=== PATIENT | female | born 1950 | race Hispanic/Latino ===

== ENCOUNTER 2024-11-05 09:32 | Inpatient (IN) | payer OTHER ==
[2024-11-05] MEDS ORDERED: ALBUTEROL 2.5 MG/3 ML NEB SOL ONE (09:47)
[2024-11-05] MEDS ORDERED: IPRATROPIUM BROM 0.5MG/2.5ML ONE (09:47)
[2024-11-05] MEDS ORDERED: NA CHLORIDE 0.9% 1,000 ML ONE (09:47)
[2024-11-05 10:08] LABS: Absolute Eosinophils 0.1 K/uL (0-0.5); Absolute Lymphocytes (CBC) 0.4 K/uL (0.7-4.9); Absolute Monocytes 0.4 K/uL (0.1-1.3); Absolute Neutrophil 4.7 K/uL (1.8-8.0); Basophils % 0.7 % (0-1.3); Eosinophils % 1.1 % (0-4.4); Hematocrit 22.6 % (36.0-45.0); Hemoglobin 7.5 g/dL (12.0-15.0); Lymphocytes % 7.6 % (15.3-44.8); MCH 28.7 pg (27.0-35.0); MCHC 33.1 g/dL (32.0-36.0); MCV 86.6 fL (80-100); MPV 6.5 fL (7.6-11.3); Monocytes % 6.6 % (3.3-12.3); Nucleated Red Blood Cells % 0.1 % (0-0); Platelets 364 thou/uL (152-406); RBC Red Blood Cell Count 2.61 M/uL (3.86-4.86)
[2024-11-05 10:16] LABS: PT Prothrombin Time 11.8 SECONDS (10-13.0); PTT, Activated Partial Thromb 27.1 SECONDS (27.2-37.4); Protime INR 1.04
[2024-11-05 10:28] LABS: AST/SGOT 18 U/L (15-37); Albumin 2.6 g/dL (3.4-5.0); Albumin/Globulin Ratio 0.8 (1.1-1.8); Alkaline Phosphatase 73 U/L (45-117); Anion Gap 9.7 mEq/L (5.0-15.0); BUN Blood Urea Nitrogen 29 mg/dL (7-18); Bicarbonate 26 mEq/L (21-32); Bilirubin Total 0.3 mg/dL (0.2-1.0); Globulin 3.4 g/dL (2.3-3.5); Glomerular Filtration Rate 40 ml/min (=/>90); Glucose Level 128 mg/dL (74-106); NT PRO-BNP 2481 pg/mL (<125); Potassium 3.7 mEq/L (3.5-5.1); Sodium Level 138 mEq/L (136-145); Troponin High Sensitivity 5.8 pg/mL (<58.9)
[2024-11-05 10:29] LABS: ALT/SGPT < 14 U/L (13-56)
--- NOTE | 2024-11-05 10:41 | RAD REPORT ---
Procedure: Chest Single View HISTORY: Shortness of breath COMPARISON: none FINDINGS: Moderate bilateral pulmonary opacities. No significant pleural effusion noted. The heart is mildly to moderately enlarged. IMPRESSION: Moderate bilateral pulmonary opacities may represent pulmonary edema or pneumonia.
[2024-11-05 11:19] LABS: Blood Gas Oxyhemoglobin 66.9 % (94-97); Blood O2 Saturation 68.2 % (92-98.5)
[2024-11-05 11:20] LABS: Arterial Blood Carboxyhemoglob 0.9 % (0-1.5); Blood Gas THB 9.4 g/dl (12-18)
[2024-11-05 12:01] LABS: Differential Total Cells Count 100; Eosinophils 1 % (0-3); Lymphocytes 4 % (15-42); Monocytes 5 % (0-10); Segmented Neutrophils 85 % (40-80)
[2024-11-05 12:02] LABS: Atypical Lymphocytes 3 %; Blood Morphology Comment NOTED (NOT SEEN); Metamyelocytes 2 % (0-0); Platelet Estimate ADEQ; Spherocyte 1+
[2024-11-05] MEDS ORDERED: Levofloxacin 750mg IV 750 MG/150 ML BAG IV ONE (12:16)
--- NOTE | 2024-11-05 12:17 | ER ---
Nurse's Notes [facility] Name: Yolette Adame Age: 74 yrs Sex: Female : 1950 Arrival Date: 11/05/2024 Time: 09:32 Bed 24 Private MD: Diagnosis: Multifocal pneumonia;Hypoxia Presentation: 11/05 09:44 Chief complaint: Patient states: Recently discharged from [facility] after ss a 7 day admission after being diagnosed with COVID. Pt reports she was discharged home on Monday. Coronavirus screen: Client reports previous positive COVID test result. Ebola Screen: Patient denies exposure to infectious person. Patient denies travel to an Ebola-affected area in the 21 days before illness onset. Initial Sepsis Screen: Does the patient meet any 2 criteria? RR > 20 per min. Does the patient have a suspected source of infection? No. Patient's initial sepsis screen is negative. Risk Assessment: Do you want to hurt yourself or someone else? Patient reports no desire to harm self or others. Onset of symptoms was October 28, 2024. 09:44 Method Of Arrival: Wheelchair ss 09:44 Acuity: DEX 2 ss Triage Assessment: 09:57 General: Appears in no apparent distress. well groomed. Respiratory: the patient has ph moderate shortness of breath. Historical: - Allergies: 09:47 No Known Allergies; ss - PMHx: 09:47 liver transplant; ss - Immunization history:: Adult Immunizations unknown. - Infectious Disease History:: Denies. - Social history:: Smoking status: Patient denies any tobacco usage or history of. Screenin:57 [facility] ED Fall Risk Assessment (Adult) History of falling in the last 3 months, ph including since admission No falls in past 3 months (0 pts) Confusion or Disorientation No (0 pts) Intoxicated or Sedated No (0 pts) Impaired Gait No (0 pts) Mobility Assist Device Used Yes (1 pt) Altered Elimination No (0 pt) Score/Fall Risk Level 0 - 2 = Low Risk Oriented to surroundings, Maintained a safe environment, Hourly rounding (assess needs \T\ fall precautionary measures) done. Abuse screen: Denies threats or abuse. Denies injuries from another. Nutritional screening: No deficits noted. Tuberculosis screening: No symptoms or risk factors identified. Assessment: 09:56 General: Appears in no apparent distress. Behavior is cooperative, anxious. Pain: ph Denies pain. Neuro: Level of Consciousness is awake, alert, obeys commands, Oriented to person, place, time, situation. Respiratory: Reports shortness of breath cough that is Airway is patent Respiratory effort is even, unlabored, Respiratory pattern is regular, symmetrical. GI: No signs and/or symptoms were reported involving the gastrointestinal system. Derm: Skin is pink, warm \T\ dry. Vital Signs: 09:44 BP 144 / 64; Pulse 65; Resp 32; Temp 98.9(O); Pulse Ox 83% on R/A; Weight 74.84 kg; ss Height 5 ft. 1 in. ; Pain 5/10; 09:48 Pulse Ox 92% on 4 lpm NC; ss 10:35 BP 132 / 48; Pulse 63; Pulse Ox 91% on 4 lpm NC; ap3 11:44 BP 152 / 66; Pulse 59; Resp 26; Pulse Ox 92% on 4 lpm NC; ap3 12:35 BP 149 / 56; Pulse 61; Resp 22; Pulse Ox 95% on 4 lpm NC; ph 09:44 Body Mass Index 31.18 (74.84 kg, 154.94 cm) ss 09:44 Pain Scale: Adult ss ED Course: 09:35 Patient arrived in ED. im 09:35 Andrea Johnson MD is Attending Physician. rt 09:37 Junie Hall, RN is Primary Nurse. ph 09:47 Triage completed. ss 09:47 Arm band placed on right wrist. ss 09:55 Initial lab(s) drawn, by me, sent to lab. First set of blood cultures drawn by me. ap3 09:57 Patient has correct armband on for positive identification. Bed in low position. Call ph light in reach. Side rails up X2. Client placed on continuous cardiac and pulse oximetry monitoring. NIBP monitoring applied. compliance monitor on. Door closed. Noise minimized. 10:01 Inserted saline lock: 22 gauge in left antecubital area, using aseptic technique. Blood ap3 collected. Flushed with 10 mL NS. 10:12 EKG done, by ED staff, reviewed by Andrea Johnson MD. kb4 10:13 Chest Single View XRAY In Process Unspecified. EDMS 12:16 Pa Rosen PA is Hospitalizing Provider. rt 12:35 No provider procedures requiring assistance completed. Patient admitted, IV remains in ph place. Administered Medications: 09:51 Drug: DuoNeb Nebulize (3:1) (2.5 mg - 0.5 mg) 3 ml Nebulizer once Route: Nebulizer; ph 10:12 Drug: NS 0.9% IV 1000 ml IV at 1000 ml once; to be given as a bolus over 60 minutes ap3 Route: IV; Rate: 1000 ml; Site: left antecubital; 11:15 Follow up: IV Status: Completed infusion; IV Intake: 1000ml ap3 12:24 Drug: LevaQUIN IVPB 750 mg IVPB once Route: IVPB; Site: left antecubital; ap3 Medication: 09:57 VIS not applicable for this client. ph Intake: 11:15 IV: 1000ml; Total: 1000ml. ap3 Outcome: 12:16 Decision to Hospitalize by Provider. rt 17:00 Admitted to ER Hold. Please see [facility] for further documentation. ph 17:00 Condition: stable 17:00 Instructed on the need for admit, 11/06 18:12 Patient left the ED. cm10 Signatures: Dispatcher [employer] EDMS Cristina Serrano RN RN Junie Hall RN RN Annalee Burciaga RN RN ap3 Andrea Johnson MD MD rt Mariela Cervantes Clarissa, RN RN cm10 Meche Arriola kb4
--- NOTE | 2024-11-05 12:17 | EDPHYS ---
Physician Documentation [facility] Name: Yolette Adame Age: 74 yrs Sex: Female : 1950 Arrival Date: 11/05/2024 Time: 09:32 Bed 24 Private MD: ED Physician Andrea Johnson HPI: 11/05 09:46 This 74 yrs old Female presents to ER via Unassigned with complaints of rt Shortness Of Breath. 09:46 Patient has a history of liver transplant, on immunosuppressants. the patient had a rt recent admission To [facility] for COVID-pneumonia, completed a course of antibiotics, is currently on steroids. She was in the hospital for about a week, left the hospital 4 days ago and reportedly was doing well. Patient had worsening of the breathing since discharge, acutely worsened today prompting her to come for further evaluation. Symptoms are moderate in severity, no other aggravating alleviating factors.. Historical: - Allergies: 09:47 No Known Allergies; ss - PMHx: 09:47 liver transplant; ss - Immunization history:: Adult Immunizations unknown. - Infectious Disease History:: Denies. - Social history:: Smoking status: Patient denies any tobacco usage or history of. ROS: 09:46 Constitutional: Negative for fever, chills, and weight loss, Cardiovascular: Negative rt for chest pain, palpitations, and edema, Abdomen/GI: Negative for abdominal pain, nausea, vomiting, diarrhea, and constipation, MS/Extremity: Negative for injury and deformity, Skin: Negative for injury, rash, and discoloration, Neuro: Negative for headache, weakness, numbness, tingling, and seizure, 09:46 Respiratory: Positive for cough, shortness of breath, Exam: 09:46 Constitutional: This is a well developed, well nourished patient who is awake, alert, rt and in no acute distress. Head/Face: Normocephalic, atraumatic. Chest/axilla: Normal chest wall appearance and motion. Nontender with no deformity. No lesions are appreciated. Cardiovascular: Regular rate and rhythm with a normal S1 and S2. No gallops, murmurs, or rubs. Normal PMI, no JVD. No pulse deficits. Abdomen/GI: Soft, non-tender, with normal bowel sounds. No distension or tympany. No guarding or rebound. No evidence of tenderness throughout. Skin: Warm, dry with normal turgor. Normal color with no rashes, no lesions, and no evidence of cellulitis. MS/ Extremity: Pulses equal, no cyanosis. Neurovascular intact. Full, normal range of motion. Neuro: Awake and alert, GCS 15, oriented to person, place, time, and situation. Cranial nerves II-XII grossly intact. Motor strength 5/5 in all extremities. Sensory grossly intact. Cerebellar exam normal. Normal gait. 09:46 Respiratory: No wheezes heard, moderate respiratory distress, 11:05 ECG was reviewed by the Attending Physician. rt Vital Signs: 09:44 BP 144 / 64; Pulse 65; Resp 32; Temp 98.9(O); Pulse Ox 83% on R/A; Weight 74.84 kg; ss Height 5 ft. 1 in. ; Pain 5/10; 09:48 Pulse Ox 92% on 4 lpm NC; ss 10:35 BP 132 / 48; Pulse 63; Pulse Ox 91% on 4 lpm NC; ap3 11:44 BP 152 / 66; Pulse 59; Resp 26; Pulse Ox 92% on 4 lpm NC; ap3 12:35 BP 149 / 56; Pulse 61; Resp 22; Pulse Ox 95% on 4 lpm NC; ph 09:44 Body Mass Index 31.18 (74.84 kg, 154.94 cm) ss 09:44 Pain Scale: Adult ss MDM: 09:37 Medical Screening Exam initiated rt 12:17 Differential diagnosis: COVID, pneumonia, bronchospasm, pulmonary edema. Antibiotic rt administration: Levaquin given. Data reviewed: vital signs, nurses notes, lab test result(s), EKG, radiologic studies. Consideration of Admission/Observation Patient was admitted/placed on observation. Management of patient was discussed with the following: Hospitalist: Agrees to admit. I considered the following discharge prescriptions or medication management in the emergency department Medications were administered in the Emergency Department. See MAR. Independent interpretation of the following test(s) in the Emergency Department X-Ray: My interpretation is Multifocal pneumonia seen on interpretation of x-ray images. Care significantly affected by the following chronic conditions: Liver transplant. Counseling: I had a detailed discussion with the patient and/or guardian regarding the historical points, exam findings, and any diagnostic results supporting the discharge/admit diagnosis, lab results, radiology results, the need for further work-up and treatment in the hospital. Response to treatment: the patient's symptoms have markedly improved after treatment. 11/05 09:43 Order name: Blood Culture Adult (2) rt 11/05 09:43 Order name: CBC with Diff; Complete Time: 12:03 rt 11/05 09:43 Order name: CMP; Complete Time: 10:42 rt 11/05 09:43 Order name: Lactate w/ 2H reflex if indic.; Complete Time: 10:42 rt 11/05 09:43 Order name: Protime (+inr); Complete Time: 10:42 rt 11/05 09:43 Order name: Ptt, Activated; Complete Time: 10:42 rt 11/05 09:43 Order name: Troponin High Sensitivity; Complete Time: 10:42 rt 11/05 09:43 Order name: BNP; Complete Time: 10:42 rt 11/05 09:44 Order name: ABG; Complete Time: 11:52 rt 11/05 12:02 Order name: Manual Differential; Complete Time: 12:03 EDMS 11/05 13:08 Order name: COVID-19 Ag + Flu A+B Ag EDMS 11/05 14:04 Order name: Basic Metabolic Panel EDMS 11/05 14:04 Order name: Basic Metabolic Panel EDMS 11/05 14:04 Order name: Basic Metabolic Panel EDMS 11/05 14:04 Order name: Basic Metabolic Panel EDMS 11/05 14:04 Order name: Basic Metabolic Panel EDMS 11/05 14:04 Order name: Basic Metabolic Panel EDMS 11/05 14:04 Order name: CBC with Automated Diff EDMS 11/05 14:04 Order name: CBC with Automated Diff EDMS 11/05 14:04 Order name: CBC with Automated Diff EDMS 11/05 14:04 Order name: CBC with Automated Diff EDMS 11/05 14:04 Order name: CBC with Automated Diff EDMS 11/05 14:04 Order name: CBC with Automated Diff EDMS 11/05 14:42 Order name: Vancomycin Level Trough EDMS 11/05 21:07 Order name: Glucose, Ancillary Testing EDMS 11/06 08:14 Order name: Glucose, Ancillary Testing EDMS 11/06 12:04 Order name: Glucose, Ancillary Testing EDMS 11/06 17:29 Order name: Glucose, Ancillary Testing EDMS 11/05 09:43 Order name: Chest Single View XRAY; Complete Time: 10:42 rt 11/05 14:04 Order name: Chest Abdomen Pelvis W Cont EDMS 11/05 14:04 Order name: Echo with Doppler EDMS 11/05 14:22 Order name: Head Brain Wo Cont EDMS 11/05 14:30 Order name: Extrem Venous W Compress Altaf EDMS 11/05 09:43 Order name: Accucheck; Complete Time: 10:15 rt 11/05 09:43 Order name: Cardiac monitoring; Complete Time: 10:00 rt 11/05 09:43 Order name: EKG - Nurse/Tech; Complete Time: 10:00 rt 11/05 09:43 Order name: IV Saline Lock - Large Bore; Complete Time: 10:02 rt 11/05 09:43 Order name: Labs collected and sent; Complete Time: 10:02 rt 11/05 09:43 Order name: O2 Per Protocol; Complete Time: 09:45 rt 11/05 09:43 Order name: O2 Sat Monitoring; Complete Time: 09:45 rt 11/05 09:43 Order name: Vital Signs; Complete Time: 09:45 rt EC:05 Rate is 65 beats/min. Rhythm is regular, Normal Sinus Rhythm with No ectopy. QRS [place] rt is Normal. ID interval is normal. QRS interval is normal. QT interval is normal. No Q waves. No ST changes noted. Interpreted by me. Administered Medications: 09:51 Drug: DuoNeb Nebulize (3:1) (2.5 mg - 0.5 mg) 3 ml Nebulizer once Route: Nebulizer; ph 10:12 Drug: NS 0.9% IV 1000 ml IV at 1000 ml once; to be given as a bolus over 60 minutes ap3 Route: IV; Rate: 1000 ml; Site: left antecubital; 11:15 Follow up: IV Status: Completed infusion; IV Intake: 1000ml ap3 12:24 Drug: LevaQUIN IVPB 750 mg IVPB once Route: IVPB; Site: left antecubital; ap3 Disposition: 12:17 Critical Care:. rt Disposition Summary: 11/05/24 12:16 Hospitalization Ordered Notes: Hospitalization Status: Inpatient Admission rt Provider: Pa Rosen rt Condition: Fair rt Problem: an ongoing problem rt Symptoms: have improved rt Bed/Room Type: Standard rt Location: Telemetry/MedSurg (Inpatient)(11/06/24 17:32) iw Room Assignment: 228(11/06/24 17:32) iw Diagnosis - Multifocal pneumonia rt - Hypoxia rt Forms: - Medication Reconciliation Form rt - SBAR form rt - Leadership Thank You Letter rt Critical care time excluding procedures: 12:17 Critical care time: Bedside Care: 30 minutes, Consultation: 5 minutes. Total time: 35 rt minutes Signatures: Dispatcher [employer] EDMS Linda Jon, RN Cristina Knott, RN RN iw Cristina Serrano, RN RN ss Junie Hall, RN RN ph Annalee Burciaga, RN RN [email or web address] Anna Marie Carranza RN RN [email or web address] Radha Bay RN RN kb3 Andrea Johnson MD MD rt Corrections: (The following items were deleted from the chart) 09:43 09:43 BLOOD CULTURE*+BA.LAB.BRZ ordered. EDMS EDMS 09:43 09:43 CBC+H.LAB.BRZ ordered. EDMS EDMS 09:43 09:43 COMPREHENSIVE METABOLIC PANEL+C.LAB.BRZ ordered. EDMS EDMS 09:43 09:43 LACTATE+C.LAB.BRZ ordered. EDMS EDMS 09:43 09:43 PROTIME (+INR)+COAG.LAB.BRZ ordered. EDMS EDMS 09:43 09:43 PTT, ACTIVATED+COAG.LAB.BRZ ordered. EDMS EDMS 09:43 09:43 Troponin High Sensitivity+C.LAB.BRZ ordered. EDMS EDMS 09:43 09:43 PROBNP+C.LAB.BRZ ordered. EDMS EDMS 09:44 09:44 Chest Single View+RAD.RAD.BRZ ordered. EDMS EDMS 12:03 10:14 CBC Smear Scan ordered. EDMS EDMS 14:22 14:04 CT-HEAD/BRAIN W/O CONTRAST ordered. EDMS EDMS 16:46 12:16 Telemetry/MedSurg (observation) rt kb3 16:46 12:16 rt kb3 11/06 03:51 04/ 16:46 [facility] ER HOLD kb3 kl 11/06 03:51 04 16:46 ERHOLD- kb3 kl 11/06 05:55 03:51 Telemetry/MedSurg (Inpatient) kl vc1 05:55 03:51 204 kl vc1 17:32 05:55 [facility] ER HOLD vc1 iw 17:32 05:55 ERHOLD- vc1 iw
[2024-11-05] MEDS ORDERED: D10W 125 ML IV PRN (13:55)
[2024-11-05] MEDS ORDERED: GLUCAGON 1 MG/VIAL IM PRN (13:55)
--- NOTE | 2024-11-05 14:19 | P.HP ---
Certification for Inpatient With expected LOS: >2 Midnights Patient will require the following post-hospital care: None Practitioner: I am a practitioner with admitting privileges, knowledge of patient current condition, hospital course, and medical plan of care. Services: Services provided to patient in accordance with Admission requirements found in Title 42 Section 412.3 of the Code of Federal Regulations Patient History Date of Service: 11/05/24 Reason for admission: Pneumonia History of Present Illness: 74-year-old patient presented with shortness of breath, she was found to have COVID infection approximately 10 days back, she was admitted to [facility], she was released on last Monday, she was given antibiotics and steroids, after she was discharged she was getting more short of breath so she presented here. She is complaining of cough, she is complaining of some chest and abdominal pain along with the cough, complaining of headache. She had a fever last night. She had some lower extremity edema while she was at [facility], she gained some weight as well, she was given diuretics there. No blackouts. No double vision or blurry vision. No nausea or vomiting. No abdominal pain. No constipation or diarrhea. No blood in the urine or stool. No joint pains. Review of systems: All other 10 point review of systems are negative other than as mentioned above. Allergies and medications: Reviewed, as per med rec EMR. Past medical history: Liver transplant, chronic anemia, CKD 3, diabetes mellitus type 2, hypertension Past surgical history: Liver transplant Social history: No smoking or alcohol or drugs Family history: No family history of CVA. Dad had a history of [place]. Physical examination: Vital signs: Reviewed, as per EMR. General appearance: Alert and comfortable HEENT: Extraocular movements intact, oral mucosa moist. CVS: Normal S1-S2 Lungs: Clear to auscultation bilaterally Abdomen: Soft, bowel sounds present, no tenderness Extremities: No lower extremity edema EDUCATION ASSOCIATE: Moves all 4 extremities, no obvious focal deficits Musculoskeletal: No obvious joint swelling or tenderness Physical Examination - Studies Laboratory Data (last 24 hrs) 11/05/24 11/05/24 11/05/24 09:55 09:55 09:55 WBC 5.60 Hgb 7.5 L Hct 22.6 L Plt Count 364 PT 11.8 INR 1.04 APTT 27.1 L Sodium 138 Potassium 3.7 BUN 29 H Creatinine 1.38 H Glucose 128 H Total Bilirubin 0.3 AST 18 ALT < 14 Alkaline Phosphatase 73 Assessment and Plan - Plan Assessment and plan: 1. Pneumonia, recent COVID infection: Will recheck COVID PCR, start treating as bacterial pneumonia for now, start broad-spectrum antibiotics with vancomycin and cefepime, will continue IV Decadron, request ID consult. - She may have some volume overload as well, no lower extremity extremity edema at the time of my visit but she has some lower extremity edema while was at home, check lower extremity ultrasound, will get a CT chest, get echo, start low-dose diuretic, monitor volume status closely. 2. Acute hypoxic respiratory failure: Continue supplemental oxygen 3. Chronic anemia: Monitor closely 4. CKD 3A: Monitor closely 5. History of liver transplant: Resume mycophenolate and Prograf. 6. Diabetes mellitus type 2: Sliding scale insulin for now 7. Hypertension DVT prophylaxis: Lovenox CODE STATUS: She would like to be full code Advanced directives: her daughter Shana is the POA. I did discuss all the above plan with the patient and her daughter at bedside, they both understand agrees with the plan. - Advance Directives Does patient have a Living Will: No Does patient have a Durable POA for Healthcare: No
[2024-11-05] MEDS ORDERED: ACETAMINOPHEN 500 MG TAB ONE (14:50)
--- NOTE | 2024-11-05 14:56 | RAD REPORT ---
EXAM: CT brain without contrast HISTORY: headache COMPARISON: None TECHNIQUE: Multiple contiguous axial images were obtained and a CT of the brain without contrast. Sag ittal and coronal reformats were performed. One or more of the following dose reduction techniques were used: Automated exposure control, adjust ment of the mA and/or kV according to patient size, and/or iterative reconstruction. FINDINGS: No evidence of hydrocephalus, intracranial hemorrhage, or extra-axial fluid collection. Mild brain atrophy with mild periventricular and deep white matter chronic microvascular ischemic ch anges present. No evidence of midline shift or areas of brain edema. The calvarium is intact. The visualized paranasal sinuses and mastoid air cells are essentially clear . IMPRESSION: No evidence of acute intracranial abnormality.
[2024-11-05] MEDS: ACETAMINOPHEN 500 MG TAB PO PRN (15:00)
--- NOTE | 2024-11-05 15:54 | RAD REPORT ---
EXAM: CT CHEST, ABDOMEN AND PELVIS WITH CONTRAST CLINICAL INDICATION: chest pain, abdominal pain and sob TECHNIQUE: CT chest, abdomen and pelvis was performed, following the administration of contrast, as p er department protocol. Axial, sagittal and coronal reconstructions were obtained. One or more of the following dose reduction techniques were used: Automated exposure control, adjustment of the mA a nd/or kV according to patient size, and/or iterative reconstruction. Unless otherwise specified, incidental findings do not require dedicated imaging follow-up. COMPARISON: No prior exam. FINDINGS: LUNGS: Extensive bilateral alveolar lung infiltrates are present, greater on the right likely related to infection. PLEURA: Trace left pleural effusion. MEDIASTINUM AND LYMPH NODES: Upper limit of normal mediastinal and hilar lymph nodes are present. OSSEOUS STRUCTURES AND CHEST WALL: Intact. LIVER: Mild diffuse fatty liver. Biliary stent is in place. Cholecystectomy clips. PANCREAS: No mass, ductal dilation, or kasi-pancreatic fluid. SPLEEN: Normal size. No focal lesion. ADRENALS: Normal; no mass. KIDNEYS: Normal size and contour. No hydronephrosis. URINARY BLADDER: Normal contour. GASTROINTESTINAL TRACT: No bowel obstruction, free air, significant free fluid or abscess. Moderate stool is present in the colon. There is a small amount of free fluid adjacent to the right colon. APPENDIX: Normal appendix. LYMPH NODES: No lymphadenopathy. MUSCULOSKELETAL: Mild lower lumbar degenerative spondylosis. Prominent facet arthrosis lower lumbar l evels. OTHER: Moderate fat-containing ventral hernias. IMPRESSION: Extensive bilateral alveolar lung opacities as detailed with mild reactive lymphadenopathy is suspect ed to be related to infection. Biliary stent in place the common duct with no significant intrahepatic biliary tree dilatation.
[2024-11-05] MEDS ORDERED: dexAMETHasone 4 MG TAB ONE (16:26)
[2024-11-05] MEDS ORDERED: FUROSEMIDE 40 MG/4 ML VIAL ONE (16:26)
[2024-11-05] MEDS: INSULIN REGULAR (HUMAN) 100 UNIT/ML SQ SCH (16:30)
[2024-11-05] MEDS: FUROSEMIDE 40 MG/4 ML VIAL IV SCH (16:30)
[2024-11-05] MEDS: VANCOMYCIN 1.75 GM in NA CHLORIDE 0.9% 500 ML IVPB ONE (16:30)
[2024-11-05] MEDS: dexAMETHasone 4 MG TAB PO SCH (16:30)
--- NOTE | 2024-11-05 16:54 | RAD REPORT ---
EXAMINATION: US BILATERAL LOWER EXTREMITY VENOUS DOPPLER CLINICAL INDICATION: eval for DVT TECHNIQUE: Complete bilateral duplex sonography of the BILATERAL lower extremity veins was performed. The examination included compression for vein patency, color Doppler imaging and flow augmentation in response to distal compression of the distal external iliac, common femoral, femoral, popliteal, t ibial, and great and small saphenous veins. COMPARISON: No prior exam. FINDINGS: Duplex sonography testing of the veins of the BILATERAL lower extremity was performed. Color flow chapo ging shows all veins to be compressible with [id number] color filling. Pulsatile and phasic flow is present within all lower extremity deep and superficial veins examined. IMPRESSION: There is no deep vein or superficial vein thrombosis.
[2024-11-05] MEDS: CEFEPIME 1 GM in NA CHLORIDE 0.9% 100 ML IV SCH (21:00)
--- NOTE | 2024-11-06 00:36 | CON ---
History Of Present Illness: This is a 74-year-old female, I was consulted for evaluation of pneumoni a. The patient is a 74-year-old female coming in with shortness of breath with recurrent history of COVID. Daughter is by the bedside who was able to give most of the history as patient is not able to communicate well. She had COVID infection about 10 days ago and was seen at [facility] and was released after treatment with antibiotic and steroids. The patient felt better for a few da ys and then her condition worsened and developed some shortness of breath and came to the emergency r oom with cough and worsening shortness of breath. Denies any headache, nausea, vomiting, but has mil d chest and abdominal discomfort aggravating with cough. Also, causing some headache. The patient a lso had fever before coming to the hospital. Denies any other problems. Past Medical History: Liver transplant, chronic anemia, CKD 3, diabetes mellitus type 2, hypertensio n. Past Surgical History: Liver transplant 3 years ago. Social History: Nonsmoker, nondrinker. Family History: Noncontributory except myocardial infarction. Review of Systems: A 10-point review was performed. Physical Examination: General: This is a 74-year-old female lying in the emergency room #3. Daughter is by the bedside, n ot in any acute cardiopulmonary distress, on nasal cannula. Vital Signs: Temperature 97.9, pulse 62, respiration 18, blood pressure 158/58. Nasal cannula with 5 L. HEENT: Unremarkable. Neck: Supple. Lungs: Basal crackles. Heart: S1, S2. Regular. Abdomen: Soft, nontender. Bowel sounds present. Extremities: Trace edema. Laboratory Data: Shows WBC 5.6, hemoglobin 7.5, platelets 364. Chemistry shows BUN of 29, creatini ne 1.38. BNP is 2481. Albumin level is 2.6. Micro Data: Cultures are pending. X-ray shows infilt rate. Assessment And Plan: A 74-year-old female with recent history of COVID infection. PCR for COVID is pending, admitted with pneumonitis, currently being treated with IV antibiotic including cefepime, de xamethasone, and vancomycin. See MARs for other medications. Allergies, no known drug allergies. T he patient's significant history is liver transplant. We will continue empiric antibiotic pending cu lture results. Hypoxemia being treated with oxygen. Renal insufficiency, anemia of chronic disease, moderate protein-calorie malnourishment. Continue empiric treatment with 10-14 days of antibiotic. Consider getting pulmonary evaluation. We will follow the patient as needed. Thank you for consult. POPEYE/DELMER Voice ID: [id number] Report ID: [id number]
[2024-11-06] MEDS ORDERED: HYDRALAZINE HCL 20 MG/ML VIAL ONE (03:43)
[2024-11-06] MEDS: HYDRALAZINE HCL 20 MG/ML VIAL IV ONE (03:51)
[2024-11-06] MEDS: BENZONATATE 100 MG CAP PO PRN (05:00)
[2024-11-06] MEDS ORDERED: IPRATROPIUM BROM 0.5MG/2.5ML ONE (05:13)
[2024-11-06] MEDS ORDERED: ALBUTEROL 2.5 MG/3 ML NEB SOL ONE (05:13)
[2024-11-06] MEDS: ALBUTEROL 2.5 MG/3 ML NEB SOL NEB PRN (05:24)
[2024-11-06] MEDS ORDERED: BENZONATATE 100 MG CAP PO ONE (05:31)
[2024-11-06] MEDS: CEFEPIME 1 GM in NA CHLORIDE 0.9% 100 ML IV SCH (08:00)
[2024-11-06 08:25] LABS: Absolute Lymphocytes (CBC) 0.4 K/uL (0.7-4.9); Absolute Monocytes 0.3 K/uL (0.1-1.3); Basophils % 0.4 % (0-1.3); Eosinophils % 0.5 % (0-4.4); Hematocrit 21.9 % (36.0-45.0); Hemoglobin 7.1 g/dL (12.0-15.0); Lymphocytes % 15.1 % (15.3-44.8); MCH 28.1 pg (27.0-35.0); MCHC 32.5 g/dL (32.0-36.0); MCV 86.6 fL (80-100); MPV 6.6 fL (7.6-11.3); Monocytes % 12.5 % (3.3-12.3); Neutrophils % 71.5 % (41.7-73.7); Nucleated Red Blood Cells % 0.1 % (0-0); Platelets 316 thou/uL (152-406); RBC Red Blood Cell Count 2.53 M/uL (3.86-4.86); Red Cell Distribution Width 14.1 % (12.1-15.2)
[2024-11-06] MEDS ORDERED: INSULIN REGULAR (HUMAN) 100 UNIT/ML ONE ×2 (08:25→17:21)
[2024-11-06] MEDS ORDERED: FUROSEMIDE 40 MG/4 ML VIAL ONE (08:25)
[2024-11-06] MEDS ORDERED: dexAMETHasone 4 MG TAB ONE (08:25)
[2024-11-06] MEDS ORDERED: ENOXAPARIN 30 MG/0.3 ML SQ ONE (08:27)
[2024-11-06] MEDS ORDERED: NA CHLORIDE 0.9% 100 ML ONE (08:27)
[2024-11-06] MEDS ORDERED: CEFEPIME 1 GM/VIAL ONE (08:28)
[2024-11-06] MEDS: ENOXAPARIN 30 MG/0.3 ML SQ SCH (08:47)
[2024-11-06 08:51] LABS: Influenza A Ag Negative; Influenza B Ag Negative
[2024-11-06 08:52] LABS: SARS-CoV-2 Antigen Rapid Res Positive (Negative)
--- NOTE | 2024-11-06 11:47 | P.PN ---
Subjective Date of Service: 11/06/24 Chief Complaint: Pneumonia Subjective: Chest pain, shortness of breath and abdominal pain improving. No nausea or vomiting. No obvious bleeding. Looks comfortable in the bed. Objective: General appearance: Alert and comfortable CVS: Normal S1 and S2 Lungs: Clear to auscultation bilaterally Abdomen: Soft, bowel sounds present, no tenderness Extremities: No lower extremity edema Physical Examination - Vital Signs Temperature: 98.8 F Blood Pressure: 158/55 Pulse: 61 Respirations: 23 Pulse Ox (%): 95 - Studies Laboratory Data (last 24 hrs) 11/05/24 09:55 WBC 5.60 Hgb 7.5 L Hct 22.6 L Plt Count 364 Assessment And Plan - Plan Assessment and plan: 1. Pneumonia, recent COVID infection: COVID still positive -Cont broad-spectrum antibiotics with vancomycin and cefepime, will continue IV Decadron, requested ID consult, appreciate recs. - She may have some volume overload as well, no lower extremity extremity edema at the time of my visit, lower extremity ultrasound neg for DVT - CT chest showed pneumonia -f/u echo, cont low-dose diuretic, monitor volume status closely. 2. Acute hypoxic respiratory failure: Continue supplemental oxygen, on 4 L now -CT head, abd neg except fatty liver 3. Chronic anemia: Monitor closely 4. CKD 3A: Monitor closely 5. History of liver transplant: Resume mycophenolate and Prograf when dose available from family. 6. Diabetes mellitus type 2: Sliding scale insulin for now 7. Hypertension: start norvasc DVT prophylaxis: Lovenox CODE STATUS: full code Advanced directives: her daughter Shana is the POA. I did discuss all the above plan with the patient, she understands and agrees with the plan.
[2024-11-06] MEDS ORDERED: AMLODIPINE 5 MG TAB ONE (15:59)
[2024-11-06] MEDS: AMLODIPINE 5 MG TAB PO SCH (16:01)
[2024-11-06] MEDS: TACROLIMUS 1 MG PO SCH (20:00)
[2024-11-06] MEDS: MYCOPHENOLIC ACID 360 MG PO SCH (20:00)
[2024-11-07] MEDS: VANCOMYCIN 1.25 GM in NA CHLORIDE 0.9% 250 ML IVPB SCH (03:46)
[2024-11-07 05:23] LABS: Absolute Eosinophils 0.1 K/uL (0-0.5); Absolute Lymphocytes (CBC) 0.5 K/uL (0.7-4.9); Absolute Monocytes 0.5 K/uL (0.1-1.3); Absolute Neutrophil 1.4 K/uL (1.8-8.0); Eosinophils % 3.8 % (0-4.4); Hematocrit 20.6 % (36.0-45.0); Hemoglobin 6.8 g/dL (12.0-15.0); MCH 28.7 pg (27.0-35.0); MCHC 33.1 g/dL (32.0-36.0); MCV 86.7 fL (80-100); MPV 6.5 fL (7.6-11.3); Monocytes % 19.3 % (3.3-12.3); Neutrophils % 56.9 % (41.7-73.7); Nucleated Red Blood Cells % 0.1 % (0-0); Platelets 338 thou/uL (152-406); RBC Red Blood Cell Count 2.38 M/uL (3.86-4.86); Red Cell Distribution Width 14.3 % (12.1-15.2)
[2024-11-07 05:48] LABS: Anion Gap 11.4 mEq/L (5.0-15.0); Potassium 4.4 mEq/L (3.5-5.1)
[2024-11-07] MEDS: HYDRALAZINE HCL 20 MG/ML VIAL IV PRN (08:15)
[2024-11-07] MEDS: NIFEDIPINE XL 60 MG TABLET PO SCH (08:30)
[2024-11-07] MEDS: carvediloL 12.5 MG TAB PO SCH ×2 (08:30→17:51)
[2024-11-07] MEDS: TACROLIMUS 1 MG PO SCH (09:28)
[2024-11-07] MEDS: MYCOPHENOLIC ACID 360 MG PO SCH (09:29)
[2024-11-07] MEDS ORDERED: NA CHLORIDE 0.9% 250 ML IV SCH (11:00)
--- NOTE | 2024-11-07 13:35 | P.PN ---
Subjective Date of Service: 11/07/24 Chief Complaint: Pneumonia Subjective: No Chest pain. shortness of breath improving. No nausea or vomiting. No abdominal pain. No obvious bleeding. Looks comfortable in the bed. Objective: General appearance: Alert and comfortable CVS: Normal S1 and S2 Lungs: Clear to auscultation bilaterally Abdomen: Soft, bowel sounds present, no tenderness Extremities: No lower extremity edema Physical Examination - Vital Signs Temperature: 98.2 F Blood Pressure: 193/68 Pulse: 56 Respirations: 18 Pulse Ox (%): 96 Assessment And Plan - Plan Assessment and plan: 1. Pneumonia, recent COVID infection: COVID still positive -Cont broad-spectrum antibiotics with vancomycin and cefepime, will continue IV Decadron, requested ID consult, appreciate recs. - She may have some volume overload as well, no lower extremity extremity edema at the time of my visit, lower extremity ultrasound neg for DVT - CT chest showed pneumonia -f/u echo, cont low-dose diuretic, monitor volume status closely. 2. Acute hypoxic respiratory failure: Continue supplemental oxygen, on 4 L now -CT head, abd neg except fatty liver 3. Acute on Chronic anemia: Tx 1 unit of blood today and Monitor closely -she received Tx before as per shubham 4. CKD 3A: stable Monitor closely 5. History of liver transplant: conitnue mycophenolate and Prograf home meds. 6. Diabetes mellitus type 2: Sliding scale insulin for now 7. Hypertension: cont nifedipiine, decrease coreg to 12.5 due to bradycardia, add lisinopril -cont PRN hydralazine DVT prophylaxis: Lovenox CODE STATUS: full code Advanced directives: her daughter Shana is the POA. I did discuss all the above plan with the patient, she understands and agrees with the plan. d/w daughter by phone. d/w CM team. Family requesting transfer to [facility] as she gets most of her care for the transplant, transfer initiated. 74 year old patient with recent COVID infection admitted with pneumonia, treating as superimposed bacterial pneumonia with IV antibiotics, ID is following, acute on chronic anemia, getting on 1 unit of blood today, family is requesting to transfer her to [facility] where she gets most of her care, transfer initiated, waiting for callback.
[2024-11-07] MEDS: lisinopriL 10 MG TAB PO SCH (14:32)
[2024-11-07] MEDS: ALBUTEROL 2.5 MG/3 ML NEB SOL NEB SCH (14:35)
[2024-11-07 21:32] LABS: Absolute Lymphocytes (CBC) 0.3 K/uL (0.7-4.9); Absolute Monocytes 0.4 K/uL (0.1-1.3); Absolute Neutrophil 1.8 K/uL (1.8-8.0); Basophils % 0.5 % (0-1.3); Hematocrit 24.9 % (36.0-45.0); Hemoglobin 8.4 g/dL (12.0-15.0); MCH 28.4 pg (27.0-35.0); MCHC 33.6 g/dL (32.0-36.0); MCV 84.4 fL (80-100); MPV 6.8 fL (7.6-11.3); Monocytes % 13.8 % (3.3-12.3); Neutrophils % 71.7 % (41.7-73.7); Nucleated Red Blood Cells % 0.6 % (0-0); Platelets 326 thou/uL (152-406); RBC Red Blood Cell Count 2.95 M/uL (3.86-4.86); Red Cell Distribution Width 15.6 % (12.1-15.2)
[2024-11-07 21:33] LABS: Blood Morphology Comment NOT SEEN (NOT SEEN); Platelet Estimate ADEQ; White Blood Cell Scan OK (OK)
--- NOTE | 2024-11-07 23:33 | PN ---
Subjective: The patient is lying in bed. No new acute event. Continued to have some shortness of b reath and on oxygen 5 L nasal cannula. Continued to have cough. Denies any other problems. Objective: Vital Signs: Temperature 98, pulse 61, respirations 18, blood pressure 141/54. Lungs: Basal crackles. Heart: S1, S2. Regular. Abdomen: Soft, nontender. Bowel sounds present. Extremities: Trace edema. Laboratory Data: BUN of 24, creatinine 1.2. Assessment And Plan: 1. Pneumonitis with recent COVID infection. The patient currently on empiric treatment with vancomyc in and cefepime. Continue current IV antibiotic, total of 7-10 days depending on the patient's respo nse. 2. Anemia. The patient will get a transfusion today. 3. Renal insufficiency. 4. Hyperglycemia. 5. Continue supportive care and monitor signs of infection with WBC and fever trends. 6. Pulmonary hygiene. We will follow the patient as needed. NF/MODL Voice ID: [id number] Report ID: [id number]
[2024-11-08 05:00] LABS: Absolute Eosinophils 0.2 K/uL (0-0.5); Absolute Lymphocytes (CBC) 0.6 K/uL (0.7-4.9); Absolute Monocytes 0.6 K/uL (0.1-1.3); Absolute Neutrophil 2.8 K/uL (1.8-8.0); Basophils % 0.9 % (0-1.3); Hematocrit 25.3 % (36.0-45.0); Hemoglobin 8.5 g/dL (12.0-15.0); Lymphocytes % 14.5 % (15.3-44.8); MCH 28.2 pg (27.0-35.0); MCHC 33.5 g/dL (32.0-36.0); MCV 84.2 fL (80-100); MPV 6.6 fL (7.6-11.3); Monocytes % 13.9 % (3.3-12.3); Nucleated Red Blood Cells % 0.1 % (0-0); Platelets 355 thou/uL (152-406); RBC Red Blood Cell Count 3.01 M/uL (3.86-4.86); Red Cell Distribution Width 15.9 % (12.1-15.2)
[2024-11-08 05:05] LABS: Neutrophils % 66.7 % (41.7-73.7)
--- NOTE | 2024-11-08 07:15 | ECHO ---
HEIGHT: 5 ft 1 in WEIGHT: 165 lb 0 oz DATE OF STUDY: 11/07/[address]: Pa Rosen 2-DIMENSIONAL: YES M.MODE: YES DOPPLER: YES COLOR FLOW: YES TDS: PORTABLE: YES DEFINITY: BUBBLE STUDY: DIAGNOSIS: CONGESTIVE HEART FAILURE CARDIAC HISTORY: CATHERIZATION: NO SURGERY: NO PROSTHETIC VALVE: NO PACEMAKER: NO MEASUREMENTS (cm) DIASTOLIC (NORMALS) SYSTOLIC (NORMALS) IVSd 1.2 (0.6-1.2) LA Diam 3.8 (1.9-4.0) LVEF 60-65% LVIDd 4.3 (3.5-5.7) LVIDs 2.7 (2.0-3.5) %FS 37% LVPWd 1.2 (0.6-1.2) Ao Diam 2.6 (2.0-3.7) 2 DIMENSIONAL ASSESSMENT: RIGHT ATRIUM: NORMAL LEFT ATRIUM: ENLARAGED RIGHT VENTRICLE: NORMAL LEFT VENTRICLE: NORMAL TRICUSPID VALVE: TRACE TRICUSPID REGURGITATION MITRAL VALVE: MITRAL ANNULAR CALCIFICATION WITH MILD MITRAL REGURGITATION PULMONIC VALVE: NORMAL AORTIC VALVE: NORMAL PERICARDIAL EFFUSION: NONE AORTIC ROOT: NORMAL LEFT VENTRICULAR WALL MOTION: NORMAL DOPPLER/COLOR FLOW: SEE BELOW COMMENTS: 1. NORMAL LEFT VENTRICULAR EJECTION FRACTION 60-65% WITH NORMAL WALL MOTION 2. GRADE I DIASTOLIC DYSFUNCTION 3. LEFT ATRIAL ENLARGEMENT 4. MITRAL ANNULAR CALCIFICATION WITH MILD MITRAL REGURGITATION 5. MILD PULMONARY HYPERTENSION WITH RIGHT VENTRICULAR SYSTOLIC PRESSURE 35-40 mmHg TECHNOLOGIST: LORRAINE ROSAS
[2024-11-08] MEDS ORDERED: carvediloL 6.25 MG TAB PO SCH (09:00)
--- NOTE | 2024-11-08 16:39 | P.PN ---
Subjective Date of Service: 11/08/24 Chief Complaint: Pneumonia No changes from yesterday. Patient maintained on 4 - 5 L oxygen by nasal cannula. Patient reports shortness of breath and intermittent coughing which is associated with pleurisy and right upper quadrant pain. No recorded fever. Physical Examination - Vital Signs Temperature: 97.9 F Blood Pressure: 142/64 Pulse: 72 Respirations: 19 Pulse Ox (%): 94 Assessment And Plan - Plan Physical examination General: Alert and oriented x3, mild respiratory distress. HEENT: Anicteric sclera Neck: Supple, no elevated JVD Heart: Heart sounds 1 and 2 normal, regular rhythm, normal rate, no pedal edema Lungs: Bilateral crackles, adequate breath sounds bilaterally, no rhonchi or crackles. Abdomen: Soft, nondistended, nontender, normal bowel sounds. Extremities: No tenderness, no deformity Skin: Normal skin turgor, no rash, no nodules or ulcers. Neuro: No focal motor deficit. Normal speech. Psychiatry: Normal mood, no agitation. Diagnosis Pneumonia due to COVID-19 Acute respiratory failure with hypoxia Acute on chronic anemia Chronic kidney disease stage III History of liver transplant Diabetes mellitus type 2 Essential hypertension Plan: Pneumonia due to COVID-19 Acute respiratory failure with hypoxia Continue broad-spectrum antibiotics Continue steroid Infectious diseases following. Pulmonary Dr. Aranda is following Titrate oxygen Patient is on diuretics. Chest physiotherapy Analgesics as needed. Acute on chronic anemia Status post 1 unit PRBC transfusion Monitor H&H and transfuse as needed. History of liver transplant Continue immunosuppressive-mycophenolate and Prograf. Diabetes mellitus type 2 Continue insulin sliding scale Essential hypertension Continue current dose of Coreg and lisinopril Continue nifedipine Hydralazine IV as needed for BP spikes. DVT prophylaxis: Lovenox CODE STATUS: full code
--- NOTE | 2024-11-08 18:18 | P.PN ---
Date of Service: 11/08/24 Subjective: The patient is lying in bed. No new acute event. family at bedside. Denies any other problems. Objective: Temp Pulse Resp BP Pulse Ox 97.9 F 68 19 138/64 94 11/08/24 16:41 11/08/24 17:06 11/08/24 16:41 11/08/24 17:06 11/08/24 16:41 neuro: aox3 Lungs: Basal crackles. Heart: S1, S2. Regular. Abdomen: Soft, nontender. Bowel sounds present. Extremities: Trace edema covid positive 11/06 blood culture 11/05/24 negative Laboratory Data: wbc 4.10, hgb 8.5, BUN of 27, creatinine 1.1. Assessment And Plan: 1. Pneumonitis with recent COVID infection. The patient currently on empiric treatment with vancomycin and cefepime. Continue current IV antibiotic, total of 7-10 days depending on the patient's response. Continue supportive care and monitor signs of infection with WBC and fever trends. Pulmonary hygiene. 2. Anemia 3. Renal insufficiency. 4. Hyperglycemia. We will follow the patient as needed. case discussed and in agreement with Dr sparks
[2024-11-09 08:08] LABS: Absolute Basophils 0.1 K/uL (0-0.5); Absolute Eosinophils 0.2 K/uL (0-0.5); Absolute Lymphocytes (CBC) 0.5 K/uL (0.7-4.9); Absolute Monocytes 0.6 K/uL (0.1-1.3); Absolute Neutrophil 3.7 K/uL (1.8-8.0); Basophils % 1.1 % (0-1.3); Eosinophils % 4.9 % (0-4.4); Lymphocytes % 9.8 % (15.3-44.8); MCH 28.2 pg (27.0-35.0); MCHC 33.3 g/dL (32.0-36.0); MCV 84.5 fL (80-100); MPV 6.1 fL (7.6-11.3); Monocytes % 11.1 % (3.3-12.3); Neutrophils % 73.1 % (41.7-73.7); Nucleated Red Blood Cells % 0.1 % (0-0); Platelets 337 thou/uL (152-406); RBC Red Blood Cell Count 3.19 M/uL (3.86-4.86); Red Cell Distribution Width 15.8 % (12.1-15.2)
[2024-11-09 08:20] LABS: Anion Gap 10.8 mEq/L (5.0-15.0); Potassium 3.8 mEq/L (3.5-5.1)
[2024-11-09] MEDS: ENOXAPARIN 40 MG/0.4 ML SQ SCH (08:24)
[2024-11-09 10:30] LABS: Blood Morphology Comment NOT SEEN (NOT SEEN); Platelet Estimate ADEQ; White Blood Cell Scan OK (OK)
[2024-11-09] MEDS: VANCOMYCIN 1.25 GM in NA CHLORIDE 0.9% 250 ML IVPB SCH (14:51)
--- NOTE | 2024-11-09 15:28 | P.PN ---
Subjective Date of Service: 11/09/24 Chief Complaint: Pneumonia Patient states her breathing is slightly better today compared to yesterday Oxygen weaned down to 3 to 4 L by nasal cannula. No recorded fever. Physical Examination - Vital Signs Temperature: 99.0 F Blood Pressure: 134/60 Pulse: 82 Respirations: 32 Pulse Ox (%): 95 Assessment And Plan - Plan Physical examination General: Alert and oriented x3, mild respiratory distress. HEENT: Anicteric sclera Neck: Supple, no elevated JVD Heart: Heart sounds 1 and 2 normal, regular rhythm, normal rate, no pedal edema Lungs: Bilateral crackles, adequate breath sounds bilaterally, no rhonchi or crackles. Abdomen: Soft, nondistended, nontender, normal bowel sounds. Extremities: No tenderness, no deformity Skin: Normal skin turgor, no rash, no nodules or ulcers. Neuro: No focal motor deficit. Normal speech. Psychiatry: Normal mood, no agitation. Diagnosis Pneumonia due to COVID-19 Acute respiratory failure with hypoxia Acute on chronic anemia Chronic kidney disease stage III History of liver transplant Diabetes mellitus type 2 Essential hypertension Plan: Pneumonia due to COVID-19 Acute respiratory failure with hypoxia Continue antibiotics. Patient is on oral steroid. Infectious diseases following. Pulmonary Dr. Aranda is following and assisting with management Titrate oxygen Patient is on diuretics. Chest physiotherapy, add flutter device. Analgesics as needed. Acute on chronic anemia Status post 1 unit PRBC transfusion. Hemoglobin has been stable since blood transfusion Monitor H&H and transfuse as needed. History of liver transplant Continue immunosuppressive-mycophenolate and Prograf. Diabetes mellitus type 2 Continue insulin sliding scale Essential hypertension Continue current dose of Coreg and lisinopril Continue nifedipine Hydralazine IV as needed for BP spikes. Transfer to [facility] initiated, awaiting for bed availability. DVT prophylaxis: Lovenox CODE STATUS: full code
[2024-11-09] MEDS: ALBUTEROL 2.5 MG/3 ML NEB SOL ONE (19:26)
[2024-11-10] MEDS: ALBUTEROL 2.5 MG/3 ML NEB SOL ONE ×2 (00:16→19:24)
[2024-11-10 06:51] LABS: Absolute Eosinophils 0.2 K/uL (0-0.5); Absolute Lymphocytes (CBC) 0.4 K/uL (0.7-4.9); Absolute Monocytes 0.4 K/uL (0.1-1.3); Absolute Neutrophil 3.2 K/uL (1.8-8.0); Basophils % 0.8 % (0-1.3); Eosinophils % 5.3 % (0-4.4); Hematocrit 25.3 % (36.0-45.0); Hemoglobin 8.3 g/dL (12.0-15.0); Lymphocytes % 10.3 % (15.3-44.8); MCH 27.4 pg (27.0-35.0); MCHC 32.7 g/dL (32.0-36.0); MCV 83.7 fL (80-100); MPV 6.5 fL (7.6-11.3); Monocytes % 9.3 % (3.3-12.3); Neutrophils % 74.3 % (41.7-73.7); Nucleated Red Blood Cells % 0.1 % (0-0); Platelets 332 thou/uL (152-406); RBC Red Blood Cell Count 3.02 M/uL (3.86-4.86); Red Cell Distribution Width 15.6 % (12.1-15.2)
[2024-11-10 07:05] LABS: Anion Gap 9.3 mEq/L (5.0-15.0); Potassium 4.3 mEq/L (3.5-5.1)
--- NOTE | 2024-11-10 14:09 | P.PN ---
Subjective Date of Service: 11/10/24 Chief Complaint: Pneumonia Patient states her breathing is getting better however her oxygen requirement has been fluctuating. No recorded fever. She was seen sitting up in bed. She reports cough with copious sputum production. Physical Examination - Vital Signs Temperature: 98.1 F Blood Pressure: 139/71 Pulse: 62 Respirations: 18 Pulse Ox (%): 99 - Studies Microbiology Data (last 24 hrs): 11/05/24 12:02 Blood - Blood Aerobic Blood Culture - Final No growth in 5 days. 11/05/24 12:02 Blood - Blood Anaerobic Blood Culture - Final No growth in 5 days. 11/05/24 09:55 Blood - Blood Aerobic Blood Culture - Final No growth in 5 days. 11/05/24 09:55 Blood - Blood Anaerobic Blood Culture - Final No growth in 5 days. Assessment And Plan - Plan Physical examination General: Alert and oriented x3, mild respiratory distress. HEENT: Anicteric sclera Neck: Supple, no elevated JVD Heart: Heart sounds 1 and 2 normal, regular rhythm, normal rate, no pedal edema Lungs: Bilateral crackles, adequate breath sounds bilaterally, no rhonchi or crackles. Abdomen: Soft, nondistended, nontender, normal bowel sounds. Extremities: No tenderness, no deformity Skin: Normal skin turgor, no rash, no nodules or ulcers. Neuro: No focal motor deficit. Normal speech. Psychiatry: Normal mood, no agitation. Diagnosis Pneumonia due to COVID-19 Acute respiratory failure with hypoxia Acute on chronic anemia Chronic kidney disease stage III History of liver transplant Diabetes mellitus type 2 Essential hypertension Plan: Pneumonia due to COVID-19 Acute respiratory failure with hypoxia Patient is on antibiotics and oral steroid Infectious diseases following. Pulmonary Dr. Aranda is following and assisting with management Wean oxygen. Continue diuretics Chest physiotherapy-incentive spirometry and flutter device. Analgesics as needed. Acute on chronic anemia Status post 1 unit PRBC transfusion. Monitor H&H and transfuse as needed. History of liver transplant Continue immunosuppressive-mycophenolate and Prograf. Diabetes mellitus type 2 Continue insulin sliding scale Start low-dose Lantus and titrate for steroid-induced hyperglycemia. Essential hypertension Continue current dose of Coreg and lisinopril Continue nifedipine Hydralazine IV as needed for BP spikes. Transfer to [facility] initiated, awaiting for bed availability. DVT prophylaxis: Lovenox CODE STATUS: full code
[2024-11-10] MEDS: IPRATROPIUM BROM 0.5MG/2.5ML ONE (19:03)
[2024-11-11] MEDS: ALBUTEROL 2.5 MG/3 ML NEB SOL ONE (00:58)
[2024-11-11 04:41] LABS: Anion Gap 8.5 mEq/L (5.0-15.0); Potassium 4.5 mEq/L (3.5-5.1)
[2024-11-11 04:51] LABS: Absolute Eosinophils 0.2 K/uL (0-0.5); Absolute Lymphocytes (CBC) 0.4 K/uL (0.7-4.9); Absolute Monocytes 0.3 K/uL (0.1-1.3); Basophils % 0.7 % (0-1.3); Eosinophils % 4.6 % (0-4.4); Hematocrit 28.5 % (36.0-45.0); Hemoglobin 9.3 g/dL (12.0-15.0); Lymphocytes % 10.7 % (15.3-44.8); MCH 27.2 pg (27.0-35.0); MCHC 32.6 g/dL (32.0-36.0); MCV 83.6 fL (80-100); MPV 6.6 fL (7.6-11.3); Monocytes % 7.2 % (3.3-12.3); Neutrophils % 76.8 % (41.7-73.7); Nucleated Red Blood Cells % 0.1 % (0-0); Platelets 280 thou/uL (152-406); RBC Red Blood Cell Count 3.41 M/uL (3.86-4.86); Red Cell Distribution Width 15.5 % (12.1-15.2)
[2024-11-11] MEDS: INSULIN GLARGINE 100 UNIT/ML SQ SCH (09:15)
--- NOTE | 2024-11-11 15:35 | P.PN ---
Subjective Date of Service: 11/11/24 Chief Complaint: Pneumonia Patient is now requiring 10 L of oxygen by nasal cannula. No recorded fever. She reports persistent sputum production. No recorded fever. Physical Examination - Vital Signs Temperature: 98.7 F Blood Pressure: 160/55 Pulse: 64 Respirations: 16 Pulse Ox (%): 98 - Studies Microbiology Data (last 24 hrs): 11/05/24 12:02 Blood - Blood Aerobic Blood Culture - Final No growth in 5 days. 11/05/24 12:02 Blood - Blood Anaerobic Blood Culture - Final No growth in 5 days. Assessment And Plan - Plan Physical examination General: Alert and oriented x3, mild respiratory distress. HEENT: Oxygen by nasal cannula Neck: Supple, no elevated JVD Heart: Heart sounds 1 and 2 normal, regular rhythm, normal rate, no pedal edema Lungs: Bilateral crackles, adequate breath sounds bilaterally, no rhonchi. Abdomen: Soft, nondistended, nontender, normal bowel sounds. Extremities: No tenderness, no deformity Skin: Normal skin turgor, no rash, no nodules or ulcers. Neuro: No focal motor deficit. Normal speech. Psychiatry: Normal mood, no agitation. Diagnosis Pneumonia due to COVID-19 Acute respiratory failure with hypoxia Acute on chronic anemia Chronic kidney disease stage III History of liver transplant Diabetes mellitus type 2 Essential hypertension Plan: Pneumonia due to COVID-19 Acute respiratory failure with hypoxia Continue antibiotics and steroid Infectious diseases and pulmonary are following. Wean oxygen as tolerated. Change IV Lasix to oral. Chest physiotherapy-incentive spirometry and flutter device. Analgesics as needed. Out of bed to chair PT evaluation once oxygen requirement improve. Acute on chronic anemia Status post 1 unit PRBC transfusion. Hemoglobin has been stable since transfusion Monitor H&H and transfuse as needed. History of liver transplant Continue immunosuppressive-mycophenolate and Prograf. Diabetes mellitus type 2 Continue insulin sliding scale Continue low-dose Lantus. Titrate Lantus insulin. Essential hypertension Continue current dose of Coreg and lisinopril Continue nifedipine Hydralazine IV as needed for BP spikes. Transfer to [facility] initiated, awaiting for bed availability. I followed up with the [facility] transfer center and requested to speak to a liver transplant physician regarding patient current clinical condition and also to facilitate the transfer to [facility]. I have not heard back from the transfer center yet. DVT prophylaxis: Lovenox CODE STATUS: full code
--- NOTE | 2024-11-11 22:06 | P.PN ---
Date of Service: 11/04/24 Subjective: The patient is lying in bed. No new acute event. family at bedside. Denies any other problems. Objective: Temp Pulse Resp BP Pulse Ox 98.5 F 68 18 140/59 L 96 11/11/24 20:00 11/11/24 20:00 11/11/24 20:00 11/11/24 20:00 11/11/24 20:00 neuro: aox3 Lungs: Basal crackles. 3 L oxygen NC, SOB Heart: S1, S2. Regular. Abdomen: Soft, nontender. Bowel sounds present. Extremities: Trace edema covid positive 11/06 blood culture 11/05/24 negative. no growth in 5 days Laboratory Data: wbc 4.10, hgb 8.5, BUN of 27, creatinine 1.1. Assessment And Plan: 1. Pneumonitis with recent COVID infection. The patient currently on empiric treatment with vancomycin and cefepime. Continue current IV antibiotic, total of 7-10 days depending on the patient's response. Continue supportive care and monitor signs of infection with WBC and fever trends. Pulmonary hygiene. 2. Anemia 3. Renal insufficiency. 4. Hyperglycemia 5. hx liver transplant continue mycophenolate and Prograf pending transfer to [facility]. waiting for bed placement We will follow the patient as needed. case discussed and in agreement with Dr sparks
[2024-11-12 04:51] LABS: Absolute Basophils 0.1 K/uL (0-0.5); Absolute Eosinophils 0.2 K/uL (0-0.5); Absolute Lymphocytes (CBC) 0.6 K/uL (0.7-4.9); Absolute Monocytes 0.5 K/uL (0.1-1.3); Absolute Neutrophil 6.5 K/uL (1.8-8.0); Basophils % 1.3 % (0-1.3); Eosinophils % 2.5 % (0-4.4); Hematocrit 24.8 % (36.0-45.0); Hemoglobin 8.4 g/dL (12.0-15.0); Lymphocytes % 7.3 % (15.3-44.8); MCH 28.5 pg (27.0-35.0); MCV 83.9 fL (80-100); MPV 6.7 fL (7.6-11.3); Monocytes % 5.9 % (3.3-12.3); Platelets 308 thou/uL (152-406); RBC Red Blood Cell Count 2.96 M/uL (3.86-4.86); Red Cell Distribution Width 15.5 % (12.1-15.2)
[2024-11-12 04:54] LABS: Blood O2 Saturation 93.7 % (92-98.5)
[2024-11-12 04:55] LABS: Blood Gas Oxyhemoglobin 91.7 % (94-97); Blood Gas THB 13.6 g/dl (12-18)
[2024-11-12 05:10] LABS: AST/SGOT 14 U/L (15-37); Albumin 2.2 g/dL (3.4-5.0); Albumin/Globulin Ratio 0.6 (1.1-1.8); Alkaline Phosphatase 85 U/L (45-117); BUN Blood Urea Nitrogen 30 mg/dL (7-18); Bicarbonate 25 mEq/L (21-32); Bilirubin Total 0.3 mg/dL (0.2-1.0); Globulin 3.5 g/dL (2.3-3.5); Glomerular Filtration Rate 55 ml/min (=/>90); Glucose Level 101 mg/dL (74-106); Protein, Total 5.7 g/dL (6.4-8.2); Sodium Level 142 mEq/L (136-145)
[2024-11-12 05:27] LABS: ALT/SGPT < 14 U/L (13-56); Bilirubin Direct < 0.2 mg/dL (0-0.2); Bilirubin Indirect, Calculated 0.1 mg/dL (0.2-0.8)
--- NOTE | 2024-11-12 06:25 | RAD REPORT ---
CLINICAL HISTORY: SOB. COMPARISON: XR Chest 11/05/2024. TECHNIQUE: XR CHEST 2 VIEWS 11/12/2024 3:38 AM CDT FINDINGS: The heart is mildly enlarged. There is extensive airspace disease throughout both lungs with relative sparing of the left lung apex. There may be small pleural effusions. There is no pneumothorax. There are no acute osseous findings. IMPRESSION: Worsening aeration of the lungs. Electronically signed by: Saturnino Fry MD 11/12/2024 05:47 AM CDT RP Due to temporary technical issues with the PACS/[employer] reporting system, reports are being doug d by the in-house radiologist without review as a courtesy to ensure prompt reporting the interpreting radiologist is fully responsible for the content of the report. Transcribed Date/Time: 11/12/2024 6:24 AM
[2024-11-12] MEDS: dexAMETHasone 4 MG/ML VIAL IV SCH (09:15)
[2024-11-12] MEDS: SPIRONOLACTONE 25 MG TABLET PO SCH (09:16)
[2024-11-12] MEDS: FUROSEMIDE 40 MG TABLET PO SCH (09:16)
--- NOTE | 2024-11-12 12:12 | P.PN ---
Date of Service: 11/12/24 Subjective: feels ok today overall minimal to no improvement compared to when she first arrived in ER worried, since her last year of COVID denies any worsening, but feels tired/sleepy at times Physical Exam: GEN: Alert, oriented CV: Regular rate and rhythm, no edema Pulm: labored respirations on 10L HF NC, diminished bilaterally ABD: soft, nontender, nondistended Neuro: Normal speech, normal affect Problem List: Acute respiratory failure with hypoxia secondary to Covid Pneumonia Acute on chronic anemia CKD III History of liver transplant Diabetes mellitus type 2 Essential hypertension Acute respiratory failure with hypoxia secondary to Covid Pneumonia CT chest (11/05): Extensive bilateral alveolar lung opacities as detailed with mild reactive lymphadenopathy is suspected to be related to infection Chest physiotherapy-incentive spirometry and flutter device. Analgesics as needed. PT eval once O2 requirement improve 11/06 - Tested positive for COVID 11/06. isolation precautions. Continue IV cefepime and vanc (11/06-) Continue decadron ID is following Blood cultures without growth 11/12 - IV lasix switched to oral CXR 11/11 with worsening opacities now up to 10L NC Pulm consulted - recommend transfer to ICU for closer monitoring decadron switched from oral to IV oral spironolactone added per pulm check ABG Acute on chronic anemia 11/07 - hgb down to 6.8 s/p 1 uPRBC; repeat hgb up to 8.4 11/09 - Lovenox restarted 11/12 - hgb stable since transfusion. History of liver transplant Continue immunosuppressive-mycophenolate and Prograf. IDDM2 accu-cheks, SSI Continue Lantus. Titrate as needed Essential hypertension CKD III Continue Coreg, lisinopril, nifedipine VTE: Lovenox Code: Full Transfer to [facility] initiated 11/07 per family request. Pending accepting physician and available bed Time Spent Managing Pts Care (In Minutes): 55
--- NOTE | 2024-11-12 12:47 | P.CNS ---
Date of Consult: 11/12/24 Reason for Consult: Respiratory failure bilateral pneumonia Chief Complaint: Pneumonia History of Present Illness: Patient is 74 years of age has been here for 7 days admitted with COVID pneumonia she has got bilateral infiltrates is not really improved over time very tachypneic short of breath on the floor no prior history of cardiopulmonary problems Allergies No Known Allergies Allergy (Unverified 11/05/24 14:19) Home Medications: Benzonatate 200 mg PO TID PRN 11/06/24 Carvedilol [Coreg] 25 mg PO BIDWM 11/06/24 Codeine Phosphate/Guaifenesin [Codeine-Guaifen 10-100 mg/5 ml] 5 ml PO BEDTIME 11/06/24 Ferrous Sulfate 325 mg PO DAILY 11/06/24 Gabapentin 300 mg PO BEDTIME 11/06/24 Insulin Aspart [Insulin Aspart Flexpen] 4 units SQ BIDWM 11/06/24 Insulin Degludec [Insulin Degludec Pen (U-200)] 20 units SQ DAILY 11/06/24 Mycophenolate Sodium [Myfortic] 360 mg PO BID 11/06/24 NIFEdipine [Nifedipine ER] 60 mg PO BID 11/06/24 Pantoprazole [Protonix Tab*] 40 mg PO DAILY 11/06/24 Tacrolimus 3 mg PO Q12HR 11/06/24 Trazodone [Desyrel*] 50 mg PO BEDTIME 11/06/24 - Past Medical/Surgical History -: Diabetes -: Hypertension -: Status post liver transplant -: Liver transplant - Social History Smoking Status: Never smoker Review of Systems 10-point ROS is otherwise unremarkable General: Weakness Respiratory: Cough, Shortness of Breath Physical Examination Temp Pulse Resp BP Pulse Ox 98.4 F 73 16 151/56 H 95 11/12/24 12:00 11/12/24 12:00 11/12/24 12:00 11/12/24 12:00 11/12/24 12:00 General: Alert, Moderate distress Respiratory: Crackles/rales, Expiratory wheezes Cardiovascular: No edema, Normal pulses, Regular rate/rhythm Gastrointestinal: Normal bowel sounds, Non-distended - Problems (1) Pneumonia due to coronavirus disease 2018 Current Visit: Yes Status: Acute Plan: Patient is 74 years of age with a history of liver transplant admitted with coronavirus pneumonia diffuse bilateral infiltrates labs chemistries reviewed start patient on IV steroids maintain and slight negative fluid balance with Lasix add spironolactone BiPAP transferred to the ICU labs chemistries all reviewed
--- NOTE | 2024-11-12 20:37 | PN ---
Subjective: The patient continued to have respiratory distress and on 8 L oxygen. Denies any chest pain. No new acute event. No problems with antibiotic. Objective: Vital Signs: Temperature 98, pulse 71, respirations 16, blood pressure 141/71. Lungs: Basal crackles. Heart: S1, S2. Regular. Abdomen: Soft, nontender. Bowel sounds present. Extremities: Trace edema. Laboratory Data: Shows WBC 7.8, hemoglobin 8.4, platelets are 308. BUN of 30, creatinine 1. Chest x-ray done today shows the patient has worsening aeration of the lungs. Assessment And Plan: Respiratory failure with recent COVID pneumonitis and bilateral infiltrates. C onsider getting Pulmonary team involved. The patient currently on cefepime and vancomycin. Anemia of chronic disease. Insulin-dependent diabetes mellitus. History of liver transplant, on immunosuppressive treatment. Consider transferring patient to [facility] where her transplant team is working. If not imp roved, we will recommend to switch patient to meropenem and discontinue cefepime. We will follow the patient closely. Monitor signs of infection with WBC and fever trends. Prognosis guarded. NF/MODL Voice ID: [id number] Report ID: [id number]
[2024-11-12] MEDS: ENSURE HIGH PROTEIN 237 ML CAN PO SCH (20:39)
[2024-11-13 07:29] LABS: Absolute Lymphocytes (CBC) 0.5 K/uL (0.7-4.9); Absolute Monocytes 0.3 K/uL (0.1-1.3); Absolute Neutrophil 5.4 K/uL (1.8-8.0); Basophils % 0.2 % (0-1.3); Eosinophils % 0.4 % (0-4.4); Hematocrit 25.1 % (36.0-45.0); Hemoglobin 8.3 g/dL (12.0-15.0); Lymphocytes % 7.7 % (15.3-44.8); MCH 27.4 pg (27.0-35.0); MPV 6.3 fL (7.6-11.3); Monocytes % 4.4 % (3.3-12.3); Neutrophils % 87.3 % (41.7-73.7); Nucleated Red Blood Cells % 0.1 % (0-0); Platelets 306 thou/uL (152-406); RBC Red Blood Cell Count 3.03 M/uL (3.86-4.86)
[2024-11-13 07:50] LABS: Albumin 2.3 g/dL (3.4-5.0); Albumin/Globulin Ratio 0.6 (1.1-1.8); Alkaline Phosphatase 90 U/L (45-117); Anion Gap 10.3 mEq/L (5.0-15.0); BUN Blood Urea Nitrogen 37 mg/dL (7-18); Bicarbonate 24 mEq/L (21-32); Bilirubin Total 0.3 mg/dL (0.2-1.0); Globulin 3.7 g/dL (2.3-3.5); Glomerular Filtration Rate 52 ml/min (=/>90); Glucose Level 191 mg/dL (74-106); Magnesium 1.8 mg/dL (1.6-2.4); NT PRO-BNP 1408 pg/mL (<125); Potassium 4.3 mEq/L (3.5-5.1); Sodium Level 138 mEq/L (136-145)
[2024-11-13 07:51] LABS: ALT/SGPT < 14 U/L (13-56); AST/SGOT < 10 U/L (15-37)
[2024-11-13] MEDS: dexAMETHasone 4 MG/ML VIAL IV SCH (08:40)
--- NOTE | 2024-11-13 09:09 | P.PN ---
Date of Service: 11/13/24 Subjective: she feels some improvement, doesn't feel anything worsening placed on BiPAP overnight due to desatting on nasal cannula breathing worsened with movement, talking family updated at bedside Last BM ~2 days ago. Denies constipation. trying to avoid eating much to avoid having BM, since she occasionally gets dizzy/lightheaded when trying to have BM Physical Exam: GEN: Alert, oriented CV: Regular rate and rhythm, no edema Pulm: labored respirations on 6L NC, diminished bilaterally ABD: soft, nontender, nondistended Neuro: Normal speech, normal affect Problem List: Acute respiratory failure with hypoxia secondary to Covid Pneumonia Acute on chronic anemia CKD III History of liver transplant Diabetes mellitus type 2 Essential hypertension Acute respiratory failure with hypoxia secondary to Covid Pneumonia CT chest (11/05): Extensive bilateral alveolar lung opacities as detailed with mild reactive lymphadenopathy is suspected to be related to infection Chest physiotherapy-incentive spirometry and flutter device. Analgesics as needed. PT eval once O2 requirement improve 11/06 - Tested positive for COVID 11/06. isolation precautions. Continue IV cefepime and vanc (11/06-) Continue decadron ID is following Blood cultures without growth 11/12 - IV lasix switched to oral CXR 11/11 with worsening opacities now up to 10L NC Pulm consulted - recommend transfer to ICU for closer monitoring decadron switched from oral to IV oral spironolactone added per pulm 11/13 - placed on BiPAP overnight due to desatting on NC Repeat CXR appears worse. Pending official report. Will reach out to ID/pulm regarding further abx recs. Patient has completed ~1 week of IV cefepime and vanc (11/06-11/12) Decadron decreased q6h to q8h. Wean oxygen as tolerated. Acute on chronic anemia 11/07 - hgb down to 6.8 s/p 1 uPRBC; repeat hgb up to 8.4 11/09 - Lovenox restarted 11/12 - hgb stable since transfusion. History of liver transplant Continue immunosuppressive-mycophenolate and Prograf. IDDM2 accu-cheks, SSI Continue Lantus. Titrate as needed Essential hypertension CKD III Continue Coreg, lisinopril, nifedipine VTE: Lovenox Code: Full Transfer to [facility] initiated 11/07 per family request. Pending accepting physician and available bed Time Spent Managing Pts Care (In Minutes): 55
--- NOTE | 2024-11-13 09:42 | RAD REPORT ---
EXAMINATION: ONE VIEW CHEST XR CLINICAL INDICATION: Female, 74 years old.,[place] TECHNIQUE: Frontal chest projection is submitted. Examination is limited by patient positioning and t echnique. COMPARISON: 11/12/2024 FINDINGS: Progressive patchy airspace opacities throughout both lungs, more abundant on the right, with stable areas of preserved aeration in the upper and peripheral left lung. Relative reduction of inspiratory effort may contribute to the interval change. No pneumothorax or sizable effusion. The h eart is normal in size. Mediastinal contours are unremarkable. IMPRESSION: Progressive patchy bilateral airspace opacities worse on the right, concerning for pneumonia or ARDS.
[2024-11-13 10:15] LABS: Atypical Lymphocytes 1 %; Band Neutrophils 2 % (0-1); Blood Morphology Comment NOTED (NOT SEEN); Differential Total Cells Count 100; Lymphocytes 8 % (15-42); Monocytes 4 % (0-10); Myelocytes 1 % (0-0); Ovalocytes SLIGHT; Platelet Estimate ADEQ; Segmented Neutrophils 84 % (40-80)
--- NOTE | 2024-11-13 12:09 | P.PN ---
Subjective Date of Service: 11/13/24 Chief Complaint: Respiratory failure pneumonia Subjective: Improving (Patient states she is feeling better although her x-ray does look worse oxygen requirements have declined) Review of Systems General: Weakness Respiratory: Shortness of Breath Physical Examination - Vital Signs Temperature: 98.6 F Blood Pressure: 157/98 Pulse: 67 Respirations: 20 Pulse Ox (%): 97 - Physical Exam General: Alert, Oriented x3, Mild distress Respiratory: Crackles/rales Cardiovascular: No edema, Regular rate/rhythm Assessment And Plan - Current Problems (Diagnosis) (1) Pneumonia due to coronavirus disease 2018 Current Visit: Yes Status: Acute Plan: Patient is 74 years of age admitted with pneumonia presumed coronavirus pneumonia subjectively feeling better chest x-ray looks worse continue with steroids continue with oxygen titrate sat to 90% negative fluid balance patient is still hypertensive
--- NOTE | 2024-11-13 13:13 | EKG ---
Test Date: 2024-11-05 Test Time: 09:53:32 Down Filler: SB MEASUREMENT RESULTS: Intervals: Rate: 65 MO: 146 QRSD: 80 QT: 400 QTc: 416 [place]: P: 49 MO: 146 QRS: -3 T: 63 INTERPRETIVE STATEMENTS: Normal sinus rhythm with sinus arrhythmia Nonspecific T wave abnormality Abnormal ECG No previous ECG available for comparison Electronically Signed On 11-13-24 12:51:28 CDT by Ashish Baird
[2024-11-13] MEDS ORDERED: VANCOMYCIN 1 GM in NA CHLORIDE 0.9% 250 ML IVPB SCH (15:00)
--- NOTE | 2024-11-13 22:28 | PN ---
Subjective: The patient is lying in ICU bed 3, on high-flow oxygen with 50% FiO2 and saturating at 9 5%, continued to have some shortness of breath, but feels slightly better today, denies any other pro blems. Objective: Vital Signs: Temperature 99, pulse 70, respirations 23, blood pressure 150/59. Lungs: Basal crackles. Heart: S1, S2. Regular. Abdomen: Soft, nontender. Bowel sounds present. Extremities: No edema. Laboratory Data: Shows WBC 6.2, hemoglobin 8.3, platelets are 306, BUN of 37, creatinine 1.11. BNP is 1408. Albumin level 2.3. Chest x-ray done today shows progressive patchy bilateral airspace opac ity, worsening on the right with concern of ARDS. The patient is currently on steroids, dexamethason e 4 mg IV q.8 hours. We will recommend to continue antibiotic and supportive care with meropenem and vancomycin. We will follow the patient as needed. NF/MODL Voice ID: [id number] Report ID: [id number]
[2024-11-14] MEDS: Meropenem 1,000 MG in NA CHLORIDE 0.9% 100 ML IV SCH (00:51)
[2024-11-14 06:08] LABS: Absolute Basophils 0.1 K/uL (0-0.5); Absolute Lymphocytes (CBC) 0.6 K/uL (0.7-4.9); Absolute Monocytes 0.2 K/uL (0.1-1.3); Absolute Neutrophil 8.5 K/uL (1.8-8.0); Basophils % 0.7 % (0-1.3); Eosinophils % 0.2 % (0-4.4); Hematocrit 26.2 % (36.0-45.0); Hemoglobin 8.8 g/dL (12.0-15.0); Lymphocytes % 6.2 % (15.3-44.8); MCH 28.1 pg (27.0-35.0); MCHC 33.6 g/dL (32.0-36.0); MCV 83.6 fL (80-100); MPV 6.8 fL (7.6-11.3); Monocytes % 2.4 % (3.3-12.3); Neutrophils % 90.5 % (41.7-73.7); Nucleated Red Blood Cells % 0.1 % (0-0); Platelets 370 thou/uL (152-406); RBC Red Blood Cell Count 3.13 M/uL (3.86-4.86); Red Cell Distribution Width 15.8 % (12.1-15.2)
[2024-11-14 06:34] LABS: ALT/SGPT < 14 U/L (13-56); AST/SGOT < 10 U/L (15-37); Albumin 2.3 g/dL (3.4-5.0); Albumin/Globulin Ratio 0.6 (1.1-1.8); Alkaline Phosphatase 103 U/L (45-117); Anion Gap 10.5 mEq/L (5.0-15.0); BUN Blood Urea Nitrogen 40 mg/dL (7-18); Bicarbonate 24 mEq/L (21-32); Bilirubin Total 0.3 mg/dL (0.2-1.0); Globulin 3.7 g/dL (2.3-3.5); Glomerular Filtration Rate 49 ml/min (=/>90); Glucose Level 169 mg/dL (74-106); Magnesium 1.9 mg/dL (1.6-2.4); NT PRO-BNP 1972 pg/mL (<125); Potassium 4.5 mEq/L (3.5-5.1); Sodium Level 139 mEq/L (136-145)
--- NOTE | 2024-11-14 07:53 | RAD REPORT ---
Procedure: Chest Single View HISTORY: Cough COMPARISON: November 13, 2024 FINDINGS: Extensive bilateral pulmonary opacities without significant change. No significant pleural effusion noted. The heart is mildly enlarged. IMPRESSION: Stable extensive lateral pulmonary opacities may represent pneumonia or ARDS
--- NOTE | 2024-11-14 10:02 | P.PN ---
Date of Service: 11/14/24 Subjective: family feels patient is improving overall, noticing more strength / energy. Still gets SOB with light exertion but doesn't feel worse. breathing more comfortably, not as labored. worked with PT yesterday afebrile Physical Exam: GEN: Alert, oriented CV: Regular rate and rhythm, no edema Pulm: mildly labored respirations on 7-8L NC bubbler, diminished bilaterally ABD: soft, nontender, nondistended Neuro: Normal speech, normal affect Problem List: Acute respiratory failure with hypoxia secondary to Covid Pneumonia Acute on chronic anemia History of liver transplant (June 2023) IDDM2 Essential hypertension CKD III Acute respiratory failure with hypoxia secondary to Covid Pneumonia CT chest (11/05): Extensive bilateral alveolar lung opacities as detailed with mild reactive lymphadenopathy is suspected to be related to infection Chest physiotherapy-incentive spirometry and flutter device. Analgesics as needed. PT eval once O2 requirement improve 11/06 - Tested positive for COVID 11/06. isolation precautions. Continue IV cefepime and vanc (11/06-) Continue decadron ID is following Blood cultures without growth 11/12 - IV lasix switched to oral CXR 11/11 with worsening opacities now up to 10L NC Pulm consulted - recommend transfer to ICU for closer monitoring decadron switched from oral to IV oral spironolactone added per pulm 11/13 - placed on BiPAP overnight due to desatting on NC Repeat CXR with progressive patchy bilateral airspace disease worse on the right Decadron decreased q6h to q8h. 11/14 - Feeling slightly better overall. Breathing not as labored. Family feels patient has more strength/energy. Repeat CXR with stable extensive lateral pulm opacities IV cefepime / vanc (11/06-11/13) switched to IV merrem on 11/13 per ID recs, procal negative dc merrem, monitor while off abx Stable for downgrade to floor today Wean oxygen as tolerated. Acute on chronic anemia 11/07 - hgb down to 6.8 s/p 1 uPRBC; repeat hgb up to 8.4 11/09 - Lovenox restarted 11/12 - hgb stable since transfusion. History of liver transplant (June 2023) Continue immunosuppressive-mycophenolate and Prograf. Follows up with Dr. Ruslan Stevens at [facility] to reach out to her transplant team for further info regarding immunosuppressants IDDM2 accu-cheks, SSI Continue Lantus. Titrate as needed. Essential hypertension CKD III Continue Coreg, lisinopril, nifedipine VTE: Lovenox Code: Full Downgrade to floor today Transfer to [facility] initiated 11/07 per family request. Pending accepting physician and available bed Time Spent Managing Pts Care (In Minutes): 55
[2024-11-14 12:20] LABS: Band Neutrophils 3 % (0-1); Differential Total Cells Count 100; Lymphocytes 6 % (15-42); Monocytes 4 % (0-10); Segmented Neutrophils 87 % (40-80)
[2024-11-14 12:21] LABS: Anisocytosis 1+; Blood Morphology Comment NOTED (NOT SEEN); Ovalocytes SLIGHT; Platelet Estimate ADEQ
--- NOTE | 2024-11-14 12:33 | P.PN ---
Subjective Date of Service: 11/14/24 Chief Complaint: Respiratory failure pneumonia Patient is subjectively improving of the chest x-ray shows no change diffuse bilateral changes consistent with ARDS Review of Systems General: Weakness Respiratory: Cough, Shortness of Breath Physical Examination - Vital Signs Temperature: 98.5 F Blood Pressure: 151/65 Pulse: 75 Respirations: 20 Pulse Ox (%): 90 - Physical Exam General: Alert, Oriented x3 Respiratory: Crackles/rales, Expiratory wheezes Cardiovascular: No edema, Regular rate/rhythm, Normal S1 S2 Assessment And Plan - Current Problems (Diagnosis) (1) Pneumonia due to coronavirus disease 2019 Current Visit: Yes Status: Acute Plan: Patient admitted with ARDS I suspect is from coronavirus infection oxygenation improving chest x-ray no change subjectively feels better mildly anemic BUN is slightly increased blood pressure is still elevated DC nebulized albuterol prognosis poor will discuss with the transplant team regarding continuation of immunosuppressive medication consider LTAC
--- NOTE | 2024-11-14 22:30 | PN ---
Subjective: The patient lying in bed, in ICU. Continued to be on high-flow oxygen of 8 L, 52% FiO2, with 97% sat. Feels better today. Objective: Vital Signs: Temperature 98, pulse 68, respirations 20, blood pressure 140/76. Lungs: Basal crackles. Heart: S1, S2. Regular. Abdomen: Soft, nontender. Bowel sounds present. Extremities: Trace edema. Laboratory Data: Shows WBC 9.4, hemoglobin 8.8, platelets 370. BUN of 40, creatinine 1.16, albumin level of 2.3. Assessment And Plan: 1. The patient with respiratory failure secondary to bilateral patchy infiltrates, worsening in ARDS, currently being treated with dexamethasone. Because of history of COVID and viral infection, we shira l stop IV antibiotic as patient has already received several days of antibiotic without much changes and monitor patient in ICU. 2. Anemia of chronic disease. 3. Diabetes mellitus. 4. History of liver transplant. 5. Chronic kidney disease 3. Continue current supportive care and monitor signs of infection with WBC and fever trends. NF/MODL Voice ID: [id number] Report ID: [id number]
[2024-11-15 05:28] LABS: Absolute Eosinophils 0.1 K/uL (0-0.5); Absolute Lymphocytes (CBC) 0.7 K/uL (0.7-4.9); Absolute Monocytes 0.2 K/uL (0.1-1.3); Absolute Neutrophil 7.3 K/uL (1.8-8.0); Basophils % 0.1 % (0-1.3); Hematocrit 27.3 % (36.0-45.0); Lymphocytes % 8.1 % (15.3-44.8); MCH 27.5 pg (27.0-35.0); MCHC 32.8 g/dL (32.0-36.0); MCV 83.9 fL (80-100); MPV 7.1 fL (7.6-11.3); Neutrophils % 87.8 % (41.7-73.7); Nucleated Red Blood Cells % 0.1 % (0-0); Platelets 342 thou/uL (152-406); RBC Red Blood Cell Count 3.26 M/uL (3.86-4.86); Red Cell Distribution Width 15.4 % (12.1-15.2)
[2024-11-15 06:00] LABS: AST/SGOT 11 U/L (15-37); Albumin 2.3 g/dL (3.4-5.0); Albumin/Globulin Ratio 0.6 (1.1-1.8); Alkaline Phosphatase 107 U/L (45-117); Anion Gap 8.9 mEq/L (5.0-15.0); BUN Blood Urea Nitrogen 39 mg/dL (7-18); Bicarbonate 24 mEq/L (21-32); Bilirubin Total 0.3 mg/dL (0.2-1.0); Globulin 3.7 g/dL (2.3-3.5); Glomerular Filtration Rate 55 ml/min (=/>90); Glucose Level 203 mg/dL (74-106); Magnesium 1.8 mg/dL (1.6-2.4); Potassium 4.9 mEq/L (3.5-5.1); Sodium Level 137 mEq/L (136-145)
[2024-11-15 06:01] LABS: ALT/SGPT < 14 U/L (13-56)
--- NOTE | 2024-11-15 08:27 | RAD REPORT ---
Procedure: Chest Single View HISTORY: Pneumonia COMPARISON: November 14, 2024 FINDINGS: Moderate to marked right lung opacities unchanged. Mild improvement in left lung opacities No significant pleural effusion noted. The heart is mildly enlarged. IMPRESSION: No significant change in moderate to marked right and mild improvement in left pulmonary opacities
--- NOTE | 2024-11-15 08:37 | P.PN ---
Date of Service: 11/15/24 Subjective: had episode of coughing fit after drinking some coffee felt slightly better after increasing oxygen otherwise feeling better this morning afebrile Physical Exam: GEN: Alert, oriented CV: Regular rate and rhythm, no edema Pulm: mildly labored respirations on 8L NC bubbler, diminished bilaterally ABD: soft, nontender, nondistended Problem List: Acute respiratory failure with hypoxia secondary to Covid Pneumonia Acute on chronic anemia History of liver transplant (June 2023) IDDM2 Essential hypertension CKD III Acute respiratory failure with hypoxia secondary to Covid Pneumonia CT chest (11/05): Extensive bilateral alveolar lung opacities as detailed with mild reactive lymphadenopathy is suspected to be related to infection Chest physiotherapy-incentive spirometry and flutter device. Analgesics as needed. PT eval once O2 requirement improve 11/06 - Tested positive for COVID 11/06. isolation precautions. Continue IV cefepime and vanc (11/06-) Blood cultures without growth 11/12 - IV lasix switched to oral CXR 11/11 with worsening opacities; now up to 10L NC Pulm consulted - recommend transfer to ICU for closer monitoring decadron switched from oral to IV oral spironolactone added per pulm 11/13 - placed on BiPAP overnight due to desatting on NC Repeat CXR with progressive patchy bilateral airspace disease worse on the right Decadron decreased q6h to q8h. 11/14 - Feeling slightly better overall. Breathing not as labored. Family feels patient has more strength/energy. Repeat CXR with stable extensive lateral pulm opacities IV cefepime / vanc (11/06-11/13) switched to IV merrem on 11/13 per ID recs, procal negative dc merrem, monitor while off abx Stable for downgrade to floor today 11/15 - Had coughing fit after drinking some coffee yesterday. [place] better after increasing oxygen. continues on decadron IV Feeling slightly better this morning. Remains stable off abx ~9 days since testing positive for COVID, although she was already reportedly positive at [place] ~10 days prior to admission. Continue isolation precautions for at least 24 more hours. Repeat CXR with some mild improvement on left side spoke with home coordinator at [facility]. Stated in similar situations they typically hold mycophenolate, but when held, they give 10mg prednisone dc mycophenolate Acute on chronic anemia 11/07 - hgb down to 6.8 s/p 1 uPRBC; repeat hgb up to 8.4 11/09 - Lovenox restarted Hgb stable since transfusion. History of liver transplant (June 2023) Continue immunosuppressive-mycophenolate and Prograf. Follows up with Dr. Ruslan Stevens at [facility] to reach out to her transplant team for further info regarding immunosuppressants IDDM2 accu-cheks, SSI Continue Lantus. Titrate as needed. Essential hypertension CKD III Continue Coreg, lisinopril, nifedipine VTE: Lovenox Code: Full Downgrade to floor today Transfer to [facility] initiated 11/07 per family request. Pending accepting physician and available bed Time Spent Managing Pts Care (In Minutes): 55
[2024-11-15] MEDS: ALBUTEROL 2.5 MG/3 ML NEB SOL NEB PRN (16:25)
--- NOTE | 2024-11-15 21:05 | P.PN ---
Date of Service: 11/15/24 Subjective: The patient seen in ICU, lying in bed. No new acute event. pt report still feeling SOB. staff report pt is on 11 L O2. report still coughing. Denies any other problems. Objective: Temp Pulse Resp BP Pulse Ox 97.3 F 75 26 H 155/67 H 94 11/15/24 18:00 11/15/24 20:22 11/15/24 18:00 11/15/24 20:22 11/15/24 18:00 appearance: fatigue neuro: aox3 Lungs: Basal crackles. 11 L oxygen NC, SOB Heart: S1, S2. Regular. Abdomen: Soft, nontender. Bowel sounds present. Extremities: Trace edema covid positive 11/06 blood culture 11/05/24 negative. no growth in 5 days Laboratory Data: wbc 8.3, hgb 9, BUN of 39, creatinine 1.07. Assessment And Plan: 1. Pneumonitis with recent COVID infection. completed vancomycin and cefepime. worsening ARDS, currently being treated with dexamethasone. Continue supportive care and monitor signs of infection with WBC and fever trends. Pulmonary hygiene. 2. Anemia 3. CKD stage 3 4. DM 5. hx liver transplant continue mycophenolate and Prograf pending transfer to [facility]. waiting for bed placement We will follow the patient as needed. case discussed and in agreement with Dr sparks
[2024-11-16 05:21] LABS: Absolute Basophils 0.1 K/uL (0-0.5); Absolute Eosinophils 0.1 K/uL (0-0.5); Absolute Lymphocytes (CBC) 0.6 K/uL (0.7-4.9); Absolute Monocytes 0.3 K/uL (0.1-1.3); Absolute Neutrophil 6.3 K/uL (1.8-8.0); Basophils % 0.9 % (0-1.3); Eosinophils % 0.9 % (0-4.4); Hematocrit 27.1 % (36.0-45.0); Hemoglobin 9.1 g/dL (12.0-15.0); MCH 28.2 pg (27.0-35.0); MCHC 33.7 g/dL (32.0-36.0); MCV 83.7 fL (80-100); MPV 6.8 fL (7.6-11.3); Monocytes % 4.4 % (3.3-12.3); Platelets 363 thou/uL (152-406); RBC Red Blood Cell Count 3.23 M/uL (3.86-4.86); Red Cell Distribution Width 16.2 % (12.1-15.2)
[2024-11-16 05:22] LABS: Neutrophils % 85.8 % (41.7-73.7)
[2024-11-16 05:40] VITALS: BMI 30.4
[2024-11-16 05:40] LABS: AST/SGOT 16 U/L (15-37); Albumin 2.3 g/dL (3.4-5.0); Albumin/Globulin Ratio 0.6 (1.1-1.8); Alkaline Phosphatase 119 U/L (45-117); Anion Gap 11.2 mEq/L (5.0-15.0); BUN Blood Urea Nitrogen 35 mg/dL (7-18); Bicarbonate 24 mEq/L (21-32); Bilirubin Total 0.3 mg/dL (0.2-1.0); Globulin 3.8 g/dL (2.3-3.5); Glomerular Filtration Rate 60 ml/min (=/>90); Glucose Level 197 mg/dL (74-106); Magnesium 1.9 mg/dL (1.6-2.4); Potassium 5.2 mEq/L (3.5-5.1); Protein, Total 6.1 g/dL (6.4-8.2); Sodium Level 140 mEq/L (136-145)
[2024-11-16 05:45] LABS: ALT/SGPT < 14 U/L (13-56)
--- NOTE | 2024-11-16 07:47 | RAD REPORT ---
EXAM: Chest Single View HISTORY: 74 years Female f/u opacities, more O2 requirement COMPARISON: Yesterday chest radiograph FINDINGS: LUNGS/PLEURA: Widespread airspace disease, right greater than left, without significant change from y esterday. CARDIAC/MEDIASTINUM: Stable size and configuration. UPPER ABDOMEN: No significant abnormality. BONES: No acute abnormality. LINES/TUBES/OTHER: N/A IMPRESSION: No appreciable change compared with yesterday.
--- NOTE | 2024-11-16 08:18 | P.PN ---
Date of Service: 11/16/24 Subjective: was noted to desat multiple times throughout night - after coughing episodes or anxiety wore BiPAP for ~45 min overnight unable to tolerate longer due to anxiety / cough / claustrophobia up to 15L yesterday, now down to 10L NC not much appetite Physical Exam: GEN: Alert, oriented CV: Regular rate and rhythm, no edema Pulm: mild labored respirations on 10L NC bubbler, diminished bilaterally, non- productive cough ABD: soft, nontender, nondistended Problem List: Acute respiratory failure with hypoxia secondary to Covid Pneumonia History of liver transplant (June 2023) Acute on chronic anemia IDDM2 Essential hypertension CKD III Anxiety Acute respiratory failure with hypoxia secondary to Covid Pneumonia CT chest (11/05): Extensive bilateral alveolar lung opacities as detailed with mild reactive lymphadenopathy is suspected to be related to infection Chest physiotherapy-incentive spirometry and flutter device. Analgesics as needed. PT eval once O2 requirement improve 11/06 - Tested positive for COVID 11/06. isolation precautions. Continue IV cefepime and vanc (11/06-) Blood cultures without growth 11/12 - IV lasix switched to oral CXR 11/11 with worsening opacities; now up to 10L NC Pulm consulted - recommend transfer to ICU for closer monitoring decadron switched from oral to IV oral spironolactone added per pulm 11/13 - placed on BiPAP overnight due to desatting on NC Repeat CXR with progressive patchy bilateral airspace disease worse on the right Decadron decreased q6h to q8h. 11/14 - Feeling slightly better overall. Breathing not as labored. Family feels patient has more strength/energy. Repeat CXR with stable extensive lateral pulm opacities IV cefepime / vanc (11/06-11/13) switched to IV merrem on 11/13 per ID recs, procal negative dc merrem, monitor while off abx Stable for downgrade to floor today 11/15 - Had coughing fit after drinking some coffee yesterday. [place] better after increasing oxygen. continues on decadron IV Feeling slightly better this morning. Remains stable off abx ~9 days since testing positive for COVID, although she was already reportedly positive at [place] ~10 days prior to admission. Continue isolation precautions for at least 24 more hours. Repeat CXR with some mild improvement on left side 11/16 - Desat multiple times overnight. Wore BiPAP for ~45 min overnight unable to tolerate longer due to anxiety / cough / claustrophobia up to 15L yesterday, now down to 10L NC Repeat CXR stable without significant change decadron decreased to BID from TID Fentanyl patch, dilaudid added to help with air hunger, may help with BIPAP History of liver transplant (June 2023) Continue immunosuppressive-mycophenolate and Prograf. Follows up with Dr. Ruslan Stevens at [facility] to reach out to her transplant team for further info regarding immunosuppressants 11/15 - spoke with emergency medical service coordinator at [facility]. Stated in similar situations they typically hold mycophenolate, but when held, they give 10mg prednisone dc mycophenolate 11/16 -has been on tacrolimus throughout hospitalization, check trough tacrolimus level today- apparently it's a send out, so will be a few days Acute on chronic anemia 11/07 - hgb down to 6.8 s/p 1 uPRBC; repeat hgb up to 8.4 11/09 - Lovenox restarted Hgb stable since transfusion. IDDM2 accu-cheks, SSI Continue semglee. Titrate as needed. 11/16 - increase semglee to 10u daily Essential hypertension CKD III Continue Coreg, lisinopril, nifedipine VTE: Lovenox Code: Full Transfer to [facility] initiated 11/07 per family request. Pending accepting physician and available bed Time Spent Managing Pts Care (In Minutes): 55
[2024-11-16] MEDS: HYDROMORPHONE HCL 0.5 MG/0.5 ML INJ IV PRN (09:52)
[2024-11-16] MEDS ORDERED: HYDRALAZINE HCL 20 MG/ML VIAL IV PRN (10:30)
--- NOTE | 2024-11-16 11:10 | P.PN ---
Subjective Date of Service: 11/16/24 Chief Complaint: ARDS respiratory failure No significant change in patient's condition she gets desaturates very easily on slight movement still has extensive disease on her x-rays no significant changes requiring high concentrations of oxygen Review of Systems General: Weakness Respiratory: Cough, Shortness of Breath Physical Examination - Vital Signs Temperature: 98.4 F Blood Pressure: 169/59 Pulse: 69 Respirations: 17 Pulse Ox (%): 89 - Physical Exam General: Alert, Mild distress Neck: Supple Respiratory: Crackles/rales, Expiratory wheezes Gastrointestinal: Normal bowel sounds, Soft and benign, Non-distended Musculoskeletal: No clubbing, No swelling Assessment And Plan - Current Problems (Diagnosis) (1) Pneumonia due to coronavirus disease 2019 Current Visit: Yes Status: Acute Plan: Patient has ARDS from coronavirus infection no change in her condition requiring high concentrations of oxygen will consider prone positioning BiPAP blood pressure is elevated changed to scheduled hydralazine DC lisinopril labs reviewed no evidence of any infection prognosis poor discussed with relatives regarding DNR patient is on tacrolimus add fentanyl patch for air hunger advised to eat
[2024-11-16] MEDS: FENTANYL 25 MCG/PATCH TD SCH (12:22)
[2024-11-16] MEDS: dexAMETHasone 4 MG/ML VIAL IV SCH (19:35)
[2024-11-17 06:01] LABS: Absolute Eosinophils 0.3 K/uL (0-0.5); Absolute Lymphocytes (CBC) 0.7 K/uL (0.7-4.9); Absolute Monocytes 0.3 K/uL (0.1-1.3); Absolute Neutrophil 5.9 K/uL (1.8-8.0); Basophils % 0.3 % (0-1.3); Eosinophils % 3.7 % (0-4.4); Hematocrit 28.5 % (36.0-45.0); Hemoglobin 9.4 g/dL (12.0-15.0); Lymphocytes % 9.8 % (15.3-44.8); MCH 27.6 pg (27.0-35.0); MCHC 33.1 g/dL (32.0-36.0); MCV 83.2 fL (80-100); MPV 6.8 fL (7.6-11.3); Monocytes % 4.8 % (3.3-12.3); Neutrophils % 81.4 % (41.7-73.7); Nucleated Red Blood Cells % 0.2 % (0-0); Platelets 332 thou/uL (152-406); RBC Red Blood Cell Count 3.43 M/uL (3.86-4.86); Red Cell Distribution Width 15.8 % (12.1-15.2)
[2024-11-17 06:03] LABS: Albumin 2.3 g/dL (3.4-5.0); Albumin/Globulin Ratio 0.6 (1.1-1.8); Anion Gap 10.6 mEq/L (5.0-15.0); Bilirubin Total 0.3 mg/dL (0.2-1.0); Globulin 3.9 g/dL (2.3-3.5); Magnesium 1.9 mg/dL (1.6-2.4); Potassium 4.6 mEq/L (3.5-5.1); Protein, Total 6.2 g/dL (6.4-8.2)
--- NOTE | 2024-11-17 08:17 | P.PN ---
Date of Service: 11/17/24 Subjective: had to be placed on BiPAP overnight; was unable to tolerate NC bubbler tolerated BiPAP most of the night discussed code status with patient, remains full code for now feeling very tired, weak. Physical Exam: GEN: Alert, oriented CV: Regular rate and rhythm, no edema Pulm: labored respirations on NC, diminished bilaterally, non-productive cough ABD: soft, nontender, nondistended Problem List: Acute respiratory failure with hypoxia secondary to Covid Pneumonia History of liver transplant (June 2023) Acute on chronic anemia IDDM2 Essential hypertension CKD III Anxiety Acute respiratory failure with hypoxia secondary to Covid Pneumonia CT chest (11/05): Extensive bilateral alveolar lung opacities as detailed with mild reactive lymphadenopathy is suspected to be related to infection Chest physiotherapy-incentive spirometry and flutter device. Analgesics as needed. PT eval once O2 requirement improve 11/06 - Tested positive for COVID 11/06. isolation precautions. Continue IV cefepime and vanc (11/06-) Blood cultures without growth 11/12 - IV lasix switched to oral CXR 11/11 with worsening opacities; now up to 10L NC Pulm consulted - recommend transfer to ICU for closer monitoring decadron switched from oral to IV oral spironolactone added per pulm 11/13 - placed on BiPAP overnight due to desatting on NC Repeat CXR with progressive patchy bilateral airspace disease worse on the right Decadron decreased q6h to q8h. 11/14 - Feeling slightly better overall. Breathing not as labored. Family feels patient has more strength/energy. Repeat CXR with stable extensive lateral pulm opacities IV cefepime / vanc (11/06-11/13) switched to IV merrem on 11/13 per ID recs, procal negative dc merrem, monitor while off abx Stable for downgrade to floor today 11/15 - Had coughing fit after drinking some coffee yesterday. [place] better after increasing oxygen. continues on decadron IV Feeling slightly better this morning. Remains stable off abx ~9 days since testing positive for COVID, although she was already reportedly positive at [place] ~10 days prior to admission. Continue isolation precautions for at least 24 more hours. Repeat CXR with some mild improvement on left side 11/16 - Desat multiple times overnight. Wore BiPAP for ~45 min overnight unable to tolerate longer due to anxiety / cough / claustrophobia up to 15L yesterday, now down to 10L NC Repeat CXR stable without significant change decadron decreased to BID from TID Fentanyl patch, dilaudid added to help with air hunger, may help with BIPAP 11/17 - Desat on NC bubbler; placed on BiPAP overnight. Tolerated BiPAP throughout most of the night. feeling tired, weak; haven't been able to get much rest Discussed code status with patient; she states "I think I'm ready to go", but she is concerned about families wishes / goals of care. For now, she would like to remain full code. Needs more time to think and discuss with family. Continue PT History of liver transplant (June 2023) Continue immunosuppressive-mycophenolate and Prograf. Follows up with Dr. Ruslan Stevens at [facility] to reach out to her transplant team for further info regarding immunosuppressants 11/15 - spoke with flight operation coordinator at [facility]. Stated in similar situations they typically hold mycophenolate, but when held, they give 10mg prednisone dc mycophenolate 11/16 -has been on tacrolimus throughout hospitalization, check trough tacrolimus level - apparently it's a send out, so will be a few days Acute on chronic anemia 11/07 - hgb down to 6.8 s/p 1 uPRBC; repeat hgb up to 8.4 11/09 - Lovenox restarted Hgb stable since transfusion. IDDM2 accu-cheks, SSI Continue semglee. Titrate as needed. 11/16 - increase semglee to 10u daily Essential hypertension CKD III Continue Coreg, lisinopril, nifedipine VTE: Lovenox Code: Full Transfer to [facility] initiated 11/07 per family request / continuity - pt with h/o liver transplant. Pending accepting physician and available bed Time Spent Managing Pts Care (In Minutes): 55
[2024-11-17] MEDS: INSULIN GLARGINE 100 UNIT/ML SQ SCH (08:20)
[2024-11-17] MEDS: HYDROMORPHONE HCL 1 MG/ML INJ IV PRN (08:51)
[2024-11-18] MEDS: ONDANSETRON 4 MG/2 ML VIAL IV PRN (05:23)
[2024-11-18 05:38] VITALS: TEMP 98.8
[2024-11-18 06:06] LABS: AST/SGOT 12 U/L (15-37); Albumin 2.2 g/dL (3.4-5.0); Albumin/Globulin Ratio 0.6 (1.1-1.8); Alkaline Phosphatase 129 U/L (45-117); BUN Blood Urea Nitrogen 40 mg/dL (7-18); Bicarbonate 26 mEq/L (21-32); Bilirubin Total 0.3 mg/dL (0.2-1.0); Globulin 3.8 g/dL (2.3-3.5); Glomerular Filtration Rate 53 ml/min (=/>90); Glucose Level 183 mg/dL (74-106); Magnesium 2.1 mg/dL (1.6-2.4); Sodium Level 139 mEq/L (136-145)
[2024-11-18 06:07] LABS: ALT/SGPT < 14 U/L (13-56)
--- NOTE | 2024-11-18 07:51 | RAD REPORT ---
EXAMINATION: ONE VIEW CHEST XR CLINICAL INDICATION: f/u opacities TECHNIQUE: Frontal chest projection is submitted. Examination is limited by patient positioning and t echnique. COMPARISON: 11/16/2024 FINDINGS: Extensive bilateral pulmonary opacities are present fractionally improved since comparative study. Di fferential includes pulmonary edema, pneumonia and ARDS. The heart is mildly to moderately enlarged. No fracture seen.
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
[2024-11-18] MEDS: dexAMETHasone 4 MG/ML VIAL IV SCH (08:35)
[2024-11-18 09:12] VITALS: BP 148/54
[2024-11-18 09:31] VITALS: O2SAT 95
[2024-11-18] MEDS ORDERED: LORazepam 2 MG/ML VIAL IV SCH (10:00)
[2024-11-18] MEDS: LORazepam 2 MG/ML VIAL IV PRN (10:47)
[2024-11-18] MEDS: HYDROMORPHONE HCL 1 MG/ML INJ IV PRN (10:54)
--- NOTE | 2024-11-20 20:54 | P.DS ---
Admission Date: 11/05/24 Discharge Date: 11/18/24 Disposition: HOSPICE-MEDICAL FACILITY Discharge Condition: FAIR Reason for Admission: ARDS respiratory failure Consultations: Pulmonology - Dr. Love ID - Dr. Larose Brief History of Present Illness: 74 yo F, PMH: chronic anemia, IDDM2, Hypertension, CKD3, Anxiety Patient presented with shortness of breath, she was found to have COVID infection approximately 10 days back, she was admitted to [facility], she was released on last Monday, she was given antibiotics and steroids, after she was discharged she was getting more short of breath so she presented here. She is complaining of cough, she is complaining of some chest and abdominal pain along with the cough, complaining of headache. She had a fever last night. She had some lower extremity edema while she was at [facility], she gained some weight as well, she was given diuretics there. No blackouts. No double vision or blurry vision. No nausea or vomiting. No abdominal pain. No constipation or diarrhea. No blood in the urine or stool. Hospital Course: Problem List: Acute respiratory failure with hypoxia secondary to Covid Pneumonia Failure to thrive History of liver transplant (June 2023) Acute on chronic anemia IDDM2 Essential hypertension CKD III Anxiety Patient presented with worsening shortness of breath, fatigue, weakness secondary to Covid pneumonia. She was found to have COVID infection ~10 days prior to admission at [facility], was given abx and steroids, however she continued with cough, weakness and worsening dyspnea. Patient tested positive for COVID again on 11/06. Blood cultures were without growth. Patient was noted to slowly progressively decline throughout hospitalization despite several days of antibiotics, steroids, oxygen supplementation/BiPAP. She started desat more frequently throughout the day/night as her hospitalization prolonged and was requiring increased oxygen over the last few days. Discussed goals of care with patient and family. Discussed patient is at risk of an event in near future, and CPR would lead to more pain/suffering, unlikely to recover, and whether they have given any more though to DNR vs full code, and possibly comfort measures. Given her progressively worsening condition and quality of life, family opted to pursue inpatient hospice. Physical Exam: Vital Signs/Physical Exam: Temp Pulse Resp BP Pulse Ox 98.8 F 72 25 H 148/54 H 92 11/18/24 12:00 11/18/24 12:00 11/18/24 12:00 11/18/24 12:00 11/18/24 12:00 Laboratory Data at Discharge: WBC 7.20 thou/uL (4.3-10.9) 11/17/24 05:05 Hgb 9.4 g/dL (12.0-15.0) L 11/17/24 05:05 Hct 28.5 % (36.0-45.0) L 11/17/24 05:05 Plt Count 332 thou/uL (152-406) 11/17/24 05:05 PT 11.8 SECONDS (10-13.0) 11/05/24 09:55 INR 1.04 11/05/24 09:55 APTT 27.1 SECONDS (27.2-37.4) L 11/05/24 09:55 Sodium 139 mEq/L (136-145) 11/18/24 05:24 Potassium 5.0 mEq/L (3.5-5.1) 11/18/24 05:24 BUN 40 mg/dL (7-18) H 11/18/24 05:24 Creatinine 1.09 mg/dL (0.55-1.02) H 11/18/24 05:24 Glucose 183 mg/dL (74-106) H 11/18/24 05:24 Magnesium 2.1 mg/dL (1.6-2.4) 11/18/24 05:24 Total Bilirubin 0.3 mg/dL (0.2-1.0) 11/18/24 05:24 AST 12 U/L (15-37) L 11/18/24 05:24 ALT < 14 U/L (13-56) 11/18/24 05:24 Alkaline Phosphatase 129 U/L (45-117) H 11/18/24 05:24 Home Medications: Benzonatate 200 mg PO TID PRN 11/06/24 Carvedilol [Coreg] 25 mg PO BIDWM 11/06/24 Codeine Phosphate/Guaifenesin [Codeine-Guaifen 10-100 mg/5 ml] 5 ml PO BEDTIME 11/06/24 Ferrous Sulfate 325 mg PO DAILY 11/06/24 Gabapentin 300 mg PO BEDTIME 11/06/24 Insulin Aspart [Insulin Aspart Flexpen] 4 units SQ BIDWM 11/06/24 Insulin Degludec [Insulin Degludec Pen (U-200)] 20 units SQ DAILY 11/06/24 Mycophenolate Sodium [Myfortic] 360 mg PO BID 11/06/24 NIFEdipine [Nifedipine ER] 60 mg PO BID 11/06/24 Pantoprazole [Protonix Tab*] 40 mg PO DAILY 11/06/24 Tacrolimus 3 mg PO Q12HR 11/06/24 Trazodone [Desyrel*] 50 mg PO BEDTIME 11/06/24 Physician Discharge Instructions: Patient presented with worsening shortness of breath, fatigue, weakness secondary to Covid pneumonia. She was found to have COVID infection ~10 days prior to admission at [facility], was given abx and steroids, however she continued with cough, weakness and worsening dyspnea. Patient tested positive for COVID again on 11/06. Blood cultures were without growth. Patient was noted to slowly progressively decline throughout hospitalization despite several days of antibiotics, steroids, oxygen supplementation/BiPAP. She started desat more frequently throughout the day/night as her hospitalization prolonged and was requiring increased oxygen over the last few days. Discussed goals of care with patient and family. Discussed patient is at risk of an event in near future, and CPR would lead to more pain/suffering, unlikely to recover, and whether they have given any more though to DNR vs full code, and possibly comfort measures. Given her progressively worsening condition and quality of life, family opted to pursue inpatient hospice. Followup: Alexandre Campos MD [Primary Care Provider] - Time spent managing pt's care (in minutes): 70
== END 2024-11-18 12:24 | disposition hospice, inpatient (51) | DRG 177 ==
LOC: ER 09:32 → ERHOLD 13:59 → 2ND 11-06 04:55 → ERHOLD 11-06 06:16 → 2ND 11-06 18:03 → 3RD-ICU 11-12 18:39
PROVIDERS: ADMIT Hospitalist; ATTEND Hospitalist
PROC: 4A033R1 Measurement of Arterial Saturation, Peripheral, Percutaneous Approach (ICD-10-PCS; principal; 2024-11-05)
PROC: 5A09557 Assistance with Respiratory Ventilation, Greater than 96 Consecutive Hours, Continuous Positive Airway Pressure (ICD-10-PCS; 2024-11-05)
PROC: 30233N1 Transfusion of Nonautologous Red Blood Cells into Peripheral Vein, Percutaneous Approach (ICD-10-PCS; 2024-11-07)
PROC: 5A0935A Assistance with Respiratory Ventilation, Less than 24 Consecutive Hours, High Flow/Velocity Cannula (ICD-10-PCS; 2024-11-18)
DX: U07.1 COVID-19 (principal); J12.82 Pneumonia due to coronavirus disease 2019; J80 Acute respiratory distress syndrome; Z94.4 Liver transplant status; E44.0 Moderate protein-calorie malnutrition; I12.9 Hypertensive chronic kidney disease with stage 1 through stage 4 chronic kidney disease, or unspecified chronic kidney disease; N18.31 Chronic kidney disease, stage 3a; E11.22 Type 2 diabetes mellitus with diabetic chronic kidney disease; E11.65 Type 2 diabetes mellitus with hyperglycemia; D63.1 Anemia in chronic kidney disease; F41.9 Anxiety disorder, unspecified; Z86.16 Personal history of COVID-19; Z68.31 Body mass index [BMI] 31.0-31.9, adult
CPT/HCPCS: 36415; 36600; 70450; 71045; 71046; 71260; 74177; 80048; 80053; 80076; 80197; 80202; 82805; 82947; 83605; 83735; 83880; 84145; 84484; 85025; 85610; 85730; 86140; 86850; 86900; 86901; 86920; 87040; 87428; 93005; 93306; 93970; 94640; 94660; 94668; 96361; 96374; 97110; 97161; 97530; 99285; J0360; J0692; J1100; J1171; J1650; J1815; J1938; J2185; J2405; J3370; J7030; J7040; J7050; J7613; J7644; J8540; P9016; Q9967

== ENCOUNTER 2024-11-18 12:36 | Inpatient (IN) | payer OTHER ==
[2024-11-18] MEDS ORDERED: BISACODYL 10 MG RECTAL SUPP PR PRN (12:41)
[2024-11-18] MEDS ORDERED: ONDANSETRON 4 MG/2 ML VIAL IV PRN (12:43)
[2024-11-18] MEDS ORDERED: ACETAMINOPHEN 325 MG TABLET PO PRN (12:43)
[2024-11-18 12:48] VITALS: BMI 31.2
[2024-11-18] MEDS ORDERED: SCOPOLAMINE HYDROBROMIDE PATCH TD ONE (13:00)
[2024-11-18] MEDS: HYDROMORPHONE HCL 2 MG/ML inj IV PRN (13:04)
[2024-11-18] MEDS: LORazepam 2 MG/ML VIAL IV PRN (13:04)
--- NOTE | 2024-11-18 13:13 | P.HP ---
Patient History Date of Service: 11/18/24 Reason for admission: HOSPICE FOR RESPIRATORY FAILURE History of Present Illness: CAROLINA IS A LIVER TRANSPLANT PATIENT WHO CAME TO ER ON FOR EXTENSIVE COVID PNEUMONIA. SHE FAILED TO IMPROVE DESPITE DOCTORS WORKING ON HER. FAMILY ASKED FOR HOSPICE CARE TO KEEP HER COMFORTABLE. I HAD A VIRTUAL VISIT WITH HELP OF [facility] HOSPICE NURSE. Allergies No Known Allergies Allergy (Unverified 11/05/24 14:19) Home Medications: Benzonatate 200 mg PO TID PRN 11/06/24 Carvedilol [Coreg] 25 mg PO BIDWM 11/06/24 Codeine Phosphate/Guaifenesin [Codeine-Guaifen 10-100 mg/5 ml] 5 ml PO BEDTIME 11/06/24 Ferrous Sulfate 325 mg PO DAILY 11/06/24 Gabapentin 300 mg PO BEDTIME 11/06/24 Insulin Aspart [Insulin Aspart Flexpen] 4 units SQ BIDWM 11/06/24 Insulin Degludec [Insulin Degludec Pen (U-200)] 20 units SQ DAILY 11/06/24 Mycophenolate Sodium [Myfortic] 360 mg PO BID 11/06/24 NIFEdipine [Nifedipine ER] 60 mg PO BID 11/06/24 Pantoprazole [Protonix Tab*] 40 mg PO DAILY 11/06/24 Tacrolimus 3 mg PO Q12HR 11/06/24 Trazodone [Desyrel*] 50 mg PO BEDTIME 11/06/24 - Past Medical/Surgical History -: Diabetes -: Hypertension -: Status post liver transplant -: Liver transplant Review of Systems is unable to be obtained Physical Examination - Physical Exam General: Moderate distress, Severe distress, Other (LETHARGIC, EDEMATOUS.) HEENT: Atraumatic, PERRLA, Mucous membr. moist/pink, EOMI, Sclerae nonicteric Neck: Supple, 2+ carotid pulse no bruit, No LAD, Without JVD or thyroid abnormality Respiratory: Clear to auscultation bilaterally, Normal air movement Cardiovascular: Regular rate/rhythm Gastrointestinal: Normal bowel sounds, No tenderness Musculoskeletal: No tenderness Integumentary: No rashes Neurological: Normal gait, Normal speech, Normal strength at 5/5 x4 extr, Normal tone, Normal affect Lymphatics: No axilla or inguinal lymphadenopathy Assessment and Plan - Problems (Diagnosis) (1) Pneumonia due to coronavirus disease 2018 Current Visit: No Status: Acute Plan: RESPIRATORY FAILURE COMFORT CARE CURATIVE THERAPY HAS FAILED. FAMILY ASKED FOR HOSPICE. DNR COMFORT MEDS STARTED. - Advance Directives Does patient have a Living Will: No Does patient have a Durable POA for Healthcare: No
[2024-11-18 14:16] VITALS: O2SAT 75
== END 2024-11-18 16:15 | disposition expired | DRG 951 ==
LOC: 3RD-ICU 12:36
PROVIDERS: ADMIT Internal Medicine; ATTEND Internal Medicine
DX: Z51.5 Encounter for palliative care (principal)
CPT/HCPCS: J1171